=== PATIENT | female | born 1945 | race Caucasian/White ===

== ENCOUNTER 2018-05-23 20:14 | Emergency (ER) | payer OTHER, BC ==
[2018-05-23 21:23] LABS: Absolute Lymphocytes (CBC) 1.5 K/uL (0.7-4.9); Absolute Monocytes 0.7 K/uL (0.1-1.3); Absolute Neutrophil 6.9 K/uL (1.8-8.0); Basophils % 0.5 % (0-1.3); Eosinophils % 2.6 % (0-4.4); Hematocrit 40.8 % (36.0-45.0); Lymphocytes % 16.3 % (15.3-44.8); MCH 29.7 pg (27.0-35.0); MCV 88.1 fL (80-100); MPV 8.2 fL (7.6-11.3); Monocytes % 7.4 % (3.3-12.3); RBC Red Blood Cell Count 4.64 M/uL (3.86-4.86)
[2018-05-23 21:36] LABS: Protime INR 0.96
[2018-05-23 21:49] LABS: ALT/SGPT 20 U/L (12-78); AST/SGOT 19 U/L (15-37); Albumin 3.7 g/dL (3.4-5.0); Alkaline Phosphatase 55 U/L (45-117); BUN Blood Urea Nitrogen 27 mg/dL (7-18); Bicarbonate 30 mmol/L (21-32); Bilirubin Direct < 0.1 mg/dL (0-0.2); Bilirubin Total 0.2 mg/dL (0.2-1.0); Glucose Level 138 mg/dL (74-106); Protein, Total 7.9 g/dL (6.4-8.2); Sodium Level 137 mmol/L (136-145)
--- NOTE | 2018-05-23 22:04 | RAD REPORT ---
EXAM DESCRIPTION: CT - Head Brain Wo Cont - 05/23/2018 9:34 pm CLINICAL HISTORY: Transient alteration of awareness COMPARISON: None. TECHNIQUE: Axial 5 mm thick images of the head were obtained without IV contrast. All CT scans are performed using dose optimization technique as appropriate and may include automated exposure control or mA/KV adjustment according to patient size. FINDINGS: No intracranial hemorrhage, mass, edema or shift of mid-line structures. No acute infarcti on changes seen. No cortical edema or sulcal effacement. Advanced atrophy and chronic ischemic change s are present. Ventricles are in proportion to volume loss. Arterial and physiologic calcifications a re present. Mastoid air cells are clear. Minimal fluid in the right maxillary sinus. No acute bony findings. IMPRESSION: Prominent atrophy and chronic ischemic change with no acute intracranial finding. Small air-fluid level in the right maxillary sinus.
[2018-05-23 22:16] LABS: Urine Blood NEGATIVE (NEG); Urine Glucose NEGATIVE (NEG); Urine Protein NEGATIVE (NEG)
[2018-05-23 22:33] LABS: Barbiturates NEGATIVE (NEGATIVE); Benzodiazepines NEGATIVE (NEGATIVE); Cocaine NEGATIVE (NEGATIVE); METHAMPHETAM NEGATIVE (NEGATIVE); Methadone NEGATIVE (NEGATIVE); Opiates NEGATIVE (NEGATIVE); Phencyclidine NEGATIVE (NEGATIVE); THC Cannibis NEGATIVE (NEGATIVE)
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
[2018-05-23] MEDS ORDERED: LORazepam 2 MG/ML VIAL ONE (23:08)
--- NOTE | 2018-05-24 07:20 | RAD REPORT ---
EXAM DESCRIPTION: RAD - Chest Single View - 05/23/2018 9:33 pm CLINICAL HISTORY: Altered mental status, shortness of breath COMPARISON: April 2015 TECHNIQUE: AP portable chest image was obtained 2125 hours . FINDINGS: No mass or consolidations seen. Heart size and vasculature are not outside of normal range for a slightly shallow inspiratory effort. Interstitial markings are diffusely prominent. Patient love s baseline interstitial lung disease. Interstitial prominence is in part due to shallow inspiration. However, superimposed interstitial edema or interstitial pneumonia suspected. Findings are most prono unced in the right base. Trachea is midline. Calcified granulomas seen. No pulmonary artery enlargement. No measurable pleura l effusion and no pneumothorax. No acute bony abnormality seen. No acute aortic finding. Densely calc ified breast implant capsules seen. IMPRESSION: Suspected interstitial edema or interstitial pneumonia, worse in the right base, superim posed on underlying fibrotic lung disease.
--- NOTE | 2018-05-24 08:13 | EKG ---
Test Date: 2018-05-23 Test Time: 20:54:27 Script Editor: UNIQUE MEASUREMENT RESULTS: Intervals: Rate: 79 OH: 154 QRSD: 78 QT: 390 QTc: 447 [place]: P: 76 OH: 154 QRS: -12 T: 62 INTERPRETIVE STATEMENTS: Normal sinus rhythm Normal ECG No previous ECG available for comparison Electronically Signed On 05-24-18 08:12:13 CDT by Rojas Mohr
== END 2018-05-23 23:27 | disposition home or self-care (01) ==
LOC: ER 20:14 → UNDOADMOB 22:52 → ERHOLD 22:52 → ER 23:27
DX: N39.0 Urinary tract infection, site not specified (principal); F03.90 Unspecified dementia, unspecified severity, without behavioral disturbance, psychotic disturbance, mood disturbance, and anxiety; F32.9 Major depressive disorder, single episode, unspecified
CPT/HCPCS: 36415; 70450; 71045; 80048; 80076; 80307; 80320; 80329; 81003; 85025; 85610; 85730; 93005; 96374; 99284

== ENCOUNTER 2019-01-09 15:04 | Emergency (ER) | payer OTHER, BC ==
--- OUTSIDE RECORDS SUMMARY | 2019-01-09 16:24 | XMS REPORT ---
:1945 [facility] Address [address] [place] [address] Dr. Tesfaye [address] [place] [id number] Care Team Providers Name Role Phone Unavailable Unavailable Unavailable Problems This patient has no known problems. Allergies, Adverse Reactions, Alerts This patient has no known allergies or adverse reactions. Medications This patient has no known medications.
[2019-01-09 16:44] LABS: Protime INR 0.96
[2019-01-09 16:46] LABS: Absolute Lymphocytes (CBC) 2.4 K/uL (0.7-4.9); Absolute Monocytes 0.9 K/uL (0.1-1.3); Absolute Neutrophil 6.5 K/uL (1.8-8.0); Basophils % 0.5 % (0-1.3); Eosinophils % 2.3 % (0-4.4); Hematocrit 42.8 % (36.0-45.0); Lymphocytes % 23.5 % (15.3-44.8); MPV 8.4 fL (7.6-11.3); Monocytes % 8.7 % (3.3-12.3); RBC Red Blood Cell Count 4.99 M/uL (3.86-4.86)
[2019-01-09 16:56] LABS: Sodium Level 135 mmol/L (136-145)
[2019-01-09 16:57] LABS: ALT/SGPT 27 U/L (12-78); AST/SGOT 27 U/L (15-37); Albumin 3.7 g/dL (3.4-5.0); Alkaline Phosphatase 50 U/L (45-117); BUN Blood Urea Nitrogen 17 mg/dL (7-18); Bicarbonate 29 mmol/L (21-32); Bilirubin Direct < 0.1 mg/dL (0-0.2); Bilirubin Total 0.2 mg/dL (0.2-1.0); Glucose Level 84 mg/dL (74-106); Magnesium 2.5 mg/dL (1.8-2.4); Potassium 4.4 mmol/L (3.5-5.1); Protein, Total 7.6 g/dL (6.4-8.2); Troponin (Emerg Dept Use Only) < 0.02 ng/mL (0.0-0.045)
[2019-01-09 17:48] LABS: Urine Bacteria <20 /HPF (<20); Urine Culture Reflex Order NOT NEEDED; Urine Mucus 1+ /HPF (NONE SEEN); Urine RBC <5 /HPF (NONE SEEN)
[2019-01-09 17:48] LABS: Urine Blood NEGATIVE (NEG); Urine Glucose NEGATIVE (NEG); Urine Protein TRACE (NEG); Urine Specific Gravity 1.015 (1.005-1.030)
[2019-01-09] MEDS ORDERED: NA CHLORIDE 0.9% 250 ML ONE (17:58)
[2019-01-09 18:02] LABS: Barbiturates NEGATIVE (NEGATIVE); Benzodiazepines NEGATIVE (NEGATIVE); Cocaine NEGATIVE (NEGATIVE); METHAMPHETAM NEGATIVE (NEGATIVE); Methadone NEGATIVE (NEGATIVE); Opiates NEGATIVE (NEGATIVE); Phencyclidine NEGATIVE (NEGATIVE); THC Cannibis NEGATIVE (NEGATIVE)
[2019-01-09] MEDS ORDERED: clonazePAM 0.5 MG TAB ONE (19:13)
[2019-01-09] MEDS ORDERED: LORazepam 2 MG/ML VIAL ONE (19:46)
--- NOTE | 2019-01-09 20:04 | ER ---
Nurse's Notes [facility] Name: Elisa Buckner Age: 73 yrs Sex: Female : 1945 Arrival Date: 01/09/2019 Time: 15:09 Bed 26 Private MD: Diagnosis: Unspecified dementia with behavioral disturbance Presentation: 01/09 15:17 Presenting complaint: EMS states: Pt comes from home and is diagnosed with Dementia. ca1 She has episodes of Psychosis where she sees a man and goes onto a violent frenzy. Family contacted the mental health officer that they know and were instructed to call EMS and have pt brought to the ER for evaluation. VS are stable and within normal range. PT was not violent towards us but appears confused. Transition of care: patient was not received from another setting of care. Onset of symptoms was January 09, 2019. Risk Assessment: Do you want to hurt yourself or someone else? Patient reports no desire to harm self or others. Initial Sepsis Screen: Does the patient meet any 2 criteria?. Initial Sepsis Screen: Does the patient have a suspected source of infection? No. Patient's initial sepsis screen is negative. Care prior to arrival: None. 15:17 Method Of Arrival: EMS: [facility] ca1 15:17 Acuity: DAMI 2 ca1 Triage Assessment: 15:26 General: Appears in no apparent distress. comfortable, Behavior is calm, cooperative, ca1 appropriate for age. Pain: Denies pain. Neuro: Level of Consciousness is awake, alert, obeys commands, Oriented to person, Agricultural Extension Agent are equal bilaterally Moves all extremities. Speech is normal, Facial symmetry appears normal. Historical: - Allergies: 15:26 No Known Allergies; ca1 - Home Meds: 15:26 aspirin Oral [Active]; Depakote Oral [Active]; Klonopin Oral [Active]; ca1 - PMHx: 15:26 Dementia; Vascular; Depression; Hypertension; Minor Epilepsy; ca1 - PSHx: 15:26 Facelift; ca1 - Immunization history:: Adult Immunizations up to date, Flu vaccine status is unknown. - Social history:: Smoking status: Patient/guardian denies using tobacco. - Ebola Screening: : No symptoms or risks identified at this time. Screenin:30 Abuse screen: Denies threats or abuse. Denies injuries from another. Nutritional ca1 screening: No deficits noted. 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 Possible symptoms: None. Fall Risk Secondary diagnosis (15 points) dementia, Ambulatory Aid- Crutches/Cane/Walker (15 pts). Assessment: 15:30 General: Appears in no apparent distress. comfortable, Behavior is calm, cooperative, ca1 appropriate for age. Pain: Denies pain. Neuro: Level of Consciousness is awake, alert, obeys commands, Oriented to person. Cardiovascular: Heart tones S1 S2 present Capillary refill < 3 seconds Patient's skin is warm and dry. Respiratory: Airway is patent Respiratory effort is even, unlabored, Respiratory pattern is regular, symmetrical, Breath sounds are clear bilaterally. GI: Abdomen is flat, non-distended, Bowel sounds present X 4 quads. Abd is soft and non tender X 4 quads. : No deficits noted. No signs and/or symptoms were reported regarding the genitourinary system. EENT: No deficits noted. No signs and/or symptoms were reported regarding the EENT system. Derm: Skin is intact, is healthy with good turgor. Musculoskeletal: Circulation, motion, and sensation intact. Capillary refill < 3 seconds. 16:25 Reassessment: Patient appears in no apparent distress at this time. Patient and/or ca1 family updated on plan of care and expected duration. Pain level reassessed. Patient is alert, oriented x 3, equal unlabored respirations, skin warm/dry/pink. Family expressed desire for pt to be transferred to a facility that caters to elderly pts with Dementia. SHALOM Hale provider explained that she needs to be checked first medically. 17:28 Reassessment:. Reassessment: Patient appears in no apparent distress at this time. ca1 Patient and/or family updated on plan of care and expected duration. Pain level reassessed. Equal and unlabored respirations. Skin pink, warm and dry. 18:21 Reassessment: Patient appears in no apparent distress at this time. Patient and/or ca1 family updated on plan of care and expected duration. Pain level reassessed. Equal and unlabored respirations. Skin pink, warm and dry. 18:28 Reassessment: Daughter reports pt starts to get agitated at this time. And that the pt ca1 has sundowning. Notified provider. Pt refuses to put on BP cuff, and monitor connections. 19:30 Reassessment: Patient appears in no apparent distress at this time. Pt agitation has ca1 increased as reported by son. Pt refuses to stay on bed and sat at bedside chair. Notified provider. Family in pt's room. Equal and unlabored breathing. Skin pink, warm and dry. 20:39 Reassessment: Patient appears in no apparent distress at this time. Equal and unlabored ca1 respirations. Skin pink, warm and dry. Pending transfer. Family at bedside. 21:27 Reassessment: Patient appears in no apparent distress at this time. Equal and unlabored ca1 respirations. Skin pink, warm and dry. Family at bedside. 22:27 Reassessment: Patient appears in no apparent distress at this time. Equal and unlabored ca1 respirations. Skin pink, warm and dry. Called report to Summer Levin RN. Vital Signs: 15:26 BP 134 / 72; Pulse 84; Resp 17 S; Temp 98.1; Pulse Ox 93% on R/A; Weight 45.36 kg; ca1 Height 5 ft. 3 in. (160.02 cm); Pain 0/10; 16:30 BP 130 / 66; Pulse 77; Resp 17 S; Temp 98(O); Pulse Ox 94% on R/A; ca1 17:15 BP 142 / 81; Pulse 72; Resp 17 S; Temp 98.1; Pulse Ox 95% on R/A; ca1 18:21 BP 147 / 73; Pulse 74; Resp 18; Temp 98.4(O); Pulse Ox 95% on R/A; ca1 20:46 BP 145 / 79; Pulse 96; Resp 18 S; Temp 98.5(O); Pulse Ox 95% ; ca1 22:27 BP 143 / 78; Pulse 89; Resp 17 S; Temp 98.4(O); Pulse Ox 96% on R/A; ca1 15:26 Body Mass Index 17.71 (45.36 kg, 160.02 cm) ca1 ED Course: 15:09 Patient arrived in ED. ca1 15:17 Miranda Ingram RN is Primary Nurse. ca1 15:23 Triage completed. ca1 15:24 EKG done, by wildlife biology technician. reviewed by Ander Rowell MD. at1 15:26 Arm band placed on right wrist. EKG completed in triage. Results shown to MD. ca1 15:30 Patient has correct armband on for positive identification. Placed in gown. Bed in low ca1 position. Call light in reach. Side rails up X2. Adult w/ patient. Pulse ox on. NIBP on. Warm blanket given. 15:51 Armando Callahan PA is PHCP. cp 15:51 Ander Rowell MD is Attending Physician. cp 16:20 Inserted saline lock: 22 gauge in right antecubital area, using aseptic technique. ca1 Blood collected. 16:20 No provider procedures requiring assistance completed. ca1 18:11 PHCP role handed off by Armando Callahan PA jmm 18:11 Martinez Cary PA is PHCP. richardson 18:17 Faxed clinical's to [facility]. ms 22:45 IV discontinued, intact, bleeding controlled, No redness/swelling at site. Pressure ca1 dressing applied. Administered Medications: 17:41 Drug: NS 0.9% 250 ml Route: IV; Rate: bolus; Site: right antecubital; ca1 18:26 Follow up: Response: No adverse reaction; IV Status: Completed infusion ca1 19:01 Drug: KLONopin 0.5 mg Route: PO; ca1 19:29 Follow up: Response: No adverse reaction; Anxiety unchanged; Anxiety unchanged, ca1 notified provider 19:30 Drug: Ativan 1 mg Route: IVP; Site: right antecubital; ca1 22:29 Follow up: Response: No adverse reaction ca1 Output: 18:21 Urine: 250ml (Voided); Total: 250ml. ca1 Outcome: 20:03 ER care complete, transfer ordered by . [facility] 22:55 Transferred by ground EMS Note: [facility] Unit ca1 22:55 Condition: stable 22:55 Instructed on the need for transfer. 22:56 Patient left the ED. ca1 Signatures: Martinez Cary PA PA jmm Solis, Maria ms Garland, Josefina, air carrier operations inspector EKG Tat1 Armando Callahan PA PA cp Acob, Cheryl, DUNCAN RN ca1 Corrections: (The following items were deleted from the chart) 16:04 15:26 Ebola Screening: No symptoms or risks identified at this time ca1 ca1 16:05 15:30 Tuberculosis screening: No symptoms or risk factors identified. ca1 ca1 20:42 17:28 Reassessment: Patient appears in no apparent distress at this time. Patient ca1 and/or family updated on plan of care and expected duration. Pain level reassessed. Patient is alert, oriented x 3, equal unlabored respirations, skin warm/dry/pink. ca1 20:42 18:21 Reassessment: Patient appears in no apparent distress at this time. Patient ca1 and/or family updated on plan of care and expected duration. Pain level reassessed. Patient is alert, oriented x 3, equal unlabored respirations, skin warm/dry/pink. ca1 20:43 18:28 Reassessment: Daughter reports pt starts to get agitated at this time. And that ca1 the pt has sundowning. Notified provider ca1 21:02 20:46 BP 145 / 79; Pulse 96bpm; Pulse Ox 95%; Temp 98.5F Oral; ca1 ca1
--- NOTE | 2019-01-09 20:04 | EDPHYS ---
Physician Documentation [facility] Name: Elisa Buckner Age: 73 yrs Sex: Female : 1945 Arrival Date: 01/09/2019 Time: 15:09 Bed 26 Private MD: ED Physician Ander Rowell HPI: 01/09 16:05 This 73 yrs old Female presents to ER via EMS with complaints of increased cp agitation, paranoia. 16:05 The patient presents to the emergency department with paranoia. Onset: The cp symptoms/episode began/occurred gradually, and became worse 1 week(s) ago. Past psychiatric history: Prior diagnosis: depression, Dementia, Psychiatric medications include: Klonipin. Associated signs and symptoms: Pertinent positives; hallucinations, paranoia, Pertinent negatives: abdominal pain, chest pain, fever, substance abuse. Severity of symptoms: in the emergency department the symptoms have improved markedly. 16:05 Family reports patient has been increasingly paranoid and frequently attacking cp over the past week. Historical: - Allergies: 15:26 No Known Allergies; ca1 - Home Meds: 15:26 aspirin Oral [Active]; Depakote Oral [Active]; Klonopin Oral [Active]; ca1 - PMHx: 15:26 Dementia; Vascular; Depression; Hypertension; Minor Epilepsy; ca1 - PSHx: 15:26 Facelift; ca1 - Immunization history:: Adult Immunizations up to date, Flu vaccine status is unknown. - Social history:: Smoking status: Patient/guardian denies using tobacco. - Ebola Screening: : No symptoms or risks identified at this time. ROS: 16:10 Constitutional: Negative for body aches, chills, fever, poor PO intake. cp 16:10 Eyes: Negative for injury, pain, redness, and discharge. cp 16:10 Cardiovascular: Negative for chest pain. 16:10 Respiratory: Negative for cough, wheezing. 16:10 Abdomen/GI: Negative for abdominal pain, vomiting, diarrhea, constipation. 16:10 : Negative for urinary symptoms. 16:10 Skin: Negative for rash. 16:10 Neuro: Negative for altered mental status, weakness. 16:10 Psych: Positive for paranoia. 16:10 All other systems are negative. Exam: 16:35 Constitutional: The patient appears in no acute distress, alert, awake, cp non-diaphoretic, non-toxic, well developed, well nourished. 16:35 Head/Face: Normocephalic, atraumatic. cp 16:35 Eyes: Periorbital structures: appear normal, Pupils: equal, round, and reactive to light and accomodation, Conjunctiva: normal, no exudate, no injection, Sclera: no appreciated abnormality, Lids and lashes: appear normal, bilaterally. 16:35 ENT: External ear(s): are unremarkable, Ear canal(s): are normal, clear, TM's: are normal, no evidence of bulging, no erythema, Nose: is normal, Mouth: Lips: moist, Oral mucosa: pink and intact, moist, Posterior pharynx: is normal, airway is patent, no erythema, no exudate. 16:35 Neck: ROM/movement: is normal, is supple, without pain, no range of motions limitations, no meningismus, no nuchal rigidity. 16:35 Chest/axilla: Inspection: normal, Palpation: is normal, no crepitus, no tenderness. 16:35 Cardiovascular: Rate: normal, Rhythm: regular, Edema: is not appreciated, JVD: is not appreciated. 16:35 Respiratory: the patient does not display signs of respiratory distress, Respirations: normal, no use of accessory muscles, no retractions, no splinting, no tachypnea, labored breathing, is not present, Breath sounds: are clear throughout, no decreased breath sounds, no stridor, no wheezing. 16:35 Abdomen/GI: Inspection: abdomen appears normal, Palpation: abdomen is soft and non-tender, in all quadrants, rebound tenderness, is not appreciated, involuntary guarding, is not appreciated. 16:35 Back: pain, is absent, ROM is normal. 16:35 Skin: cellulitis, is not appreciated, no rash present. 16:35 Neuro: Orientation: to person, Mentation: able to follow commands, Cerebellar function: is grossly normal, Motor: moves all fours, strength is normal, Sensation: is normal. Vital Signs: 15:26 BP 134 / 72; Pulse 84; Resp 17 S; Temp 98.1; Pulse Ox 93% on R/A; Weight 45.36 kg; ca1 Height 5 ft. 3 in. (160.02 cm); Pain 0/10; 16:30 BP 130 / 66; Pulse 77; Resp 17 S; Temp 98(O); Pulse Ox 94% on R/A; ca1 17:15 BP 142 / 81; Pulse 72; Resp 17 S; Temp 98.1; Pulse Ox 95% on R/A; ca1 18:21 BP 147 / 73; Pulse 74; Resp 18; Temp 98.4(O); Pulse Ox 95% on R/A; ca1 20:46 BP 145 / 79; Pulse 96; Resp 18 S; Temp 98.5(O); Pulse Ox 95% ; ca1 22:27 BP 143 / 78; Pulse 89; Resp 17 S; Temp 98.4(O); Pulse Ox 96% on R/A; ca1 15:26 Body Mass Index 17.71 (45.36 kg, 160.02 cm) ca1 MDM: 15:51 Patient medically screened. cp 16:30 Differential diagnosis: acute psychotic break, psychosis secondary to non-compliance, cp UTI, intracranial bleed, electrolyte abnormality. 20:02 Data reviewed: vital signs, nurses notes. Counseling: I had a detailed discussion with sara the patient and/or guardian regarding: the historical points, exam findings, and any diagnostic results supporting the discharge/admit diagnosis, lab results, the need to transfer to another facility. ED course: I discussed the patient with Dr. Cedeno whom accepted transfer.. 01/09 16:02 Order name: Basic Metabolic Panel; Complete Time: 17:33 cp 05/30 17:33 Interpretation: Normal except: NA 135; GFR 46. cp 01/09 16:02 Order name: CBC with Diff; Complete Time: 17:33 cp /30 17:35 Interpretation: Normal except: RBC 4.99. cp 01/09 16:02 Order name: LFT's; Complete Time: 17:33 cp 30 16:02 Order name: Magnesium; Complete Time: 17:33 cp 05/30 17:37 Interpretation: MG 2.5; Reviewed. cp 01/09 16:02 Order name: PT-INR; Complete Time: 17:33 cp 01/09 16:02 Order name: Troponin (emerg Dept Use Only); Complete Time: 17:33 cp 01/09 16:02 Order name: Urine Microscopic Only; Complete Time: 18:09 cp 01/09 16:04 Order name: UDS; Complete Time: 18:09 cp 01/09 16:30 Order name: Depakote; Complete Time: 18:09 cp 01/09 17:40 Order name: Urine Dipstick--Ancillary (enter results); Complete Time: 18:09 ms 01/09 16:02 Order name: EKG; Complete Time: 16:04 cp 01/09 16:02 Order name: Cardiac monitoring; Complete Time: 16:03 cp 01/09 16:02 Order name: EKG - Nurse/Tech; Complete Time: 16:03 cp 01/09 16:02 Order name: IV Saline Lock; Complete Time: 16:26 cp 01/09 16:02 Order name: Labs collected and sent; Complete Time: 16: cp 01/09 16:02 Order name: O2 Per Protocol; Complete Time: 16:03 cp 01/09 16:02 Order name: O2 Sat Monitoring; Complete Time: 16:03 cp 01/09 16:02 Order name: Urine Dipstick-Ancillary (obtain specimen); Complete Time: 17:37 cp Administered Medications: 17:41 Drug: NS 0.9% 250 ml Route: IV; Rate: bolus; Site: right antecubital; ca1 18:26 Follow up: Response: No adverse reaction; IV Status: Completed infusion ca1 19:01 Drug: KLONopin 0.5 mg Route: PO; ca1 19:29 Follow up: Response: No adverse reaction; Anxiety unchanged; Anxiety unchanged, ca1 notified provider 19:30 Drug: Ativan 1 mg Route: IVP; Site: right antecubital; ca1 22:29 Follow up: Response: No adverse reaction ca1 Disposition: 01/10 06:59 Co-signature as Attending Physician, Ander Rowell MD I agree with the assessment and kdr plan of care. Disposition: 01/09/19 20:03 Transfer ordered to Other Acute Care Facility. Diagnosis is Unspecified dementia with behavioral disturbance. - Reason for transfer: Higher level of care. - Accepting physician is Wilian. - Condition is Stable. - Problem is an acute exacerbation. - Symptoms are unchanged. Signatures: Dispatcher [employer] Ander Rodriguez MD MD kdr Mickail, Joel, PA PA jmm Ballard, Brenda, RN RN bb Page, Armando, PA PA cp Acob, Miranda, RN RN ca1 Corrections: (The following items were deleted from the chart) 01/09 16:04 15:26 Ebola Screening: No symptoms or risks identified at this time ca1 ca1 17:48 16:30 Head Brain Wo Cont+CT.RAD.BRZ ordered. EDMS EDMS 22:56 20:03 01/09/2019 20:03 Transfer ordered to Other Acute Care Facility. Diagnosis is ca1 Unspecified dementia with behavioral disturbance. Reason for transfer: Higher level of care. Accepting physician is Wilian. Condition is Stable. Problem is an acute exacerbation. Symptoms are unchanged. sara
--- NOTE | 2019-01-10 08:41 | EKG ---
Test Date: 2019-01-09 Test Time: 15:09:04 Union Laborer: FAWN MEASUREMENT RESULTS: Intervals: Rate: 89 MN: 136 QRSD: 76 QT: 360 QTc: 438 [place]: P: 82 MN: 136 QRS: -19 T: 78 INTERPRETIVE STATEMENTS: Normal sinus rhythm Normal ECG Compared to ECG 05/23/2018 20:54:27 No significant changes Electronically Signed On 01-10-19 08:40:08 CDT by Rojas Mohr
== END 2019-01-09 22:56 ==
LOC: ER 15:04
DX: F03.91 Unspecified dementia, unspecified severity, with behavioral disturbance (principal); G40.909 Epilepsy, unspecified, not intractable, without status epilepticus; F32.9 Major depressive disorder, single episode, unspecified
CPT/HCPCS: 36415; 80048; 80076; 80164; 80307; 81003; 81015; 83735; 84484; 85025; 85610; 93005; 96365; 96375; 99285

== ENCOUNTER 2019-06-25 20:00 | Emergency (ER) | payer OTHER, BC ==
--- OUTSIDE RECORDS SUMMARY | 2019-06-25 20:02 | XMS REPORT ---
:1945 Author Organization [facility] Address [address] [place] [address] Dr. Tesfaye [address] [place] [id number] Care Team Providers Name Role Phone Unavailable Unavailable Unavailable Problems This patient has no known problems. Allergies, Adverse Reactions, Alerts This patient has no known allergies or adverse reactions. Medications This patient has no known medications.
[2019-06-25 20:33] LABS: Hematocrit 39.1 % (36.0-45.0); RBC Red Blood Cell Count 4.56 M/uL (3.86-4.86)
[2019-06-25 20:34] LABS: Absolute Lymphocytes (CBC) 2.6 K/uL (0.7-4.9); Basophils % 0.7 % (0-1.3); Lymphocytes % 27.2 % (15.3-44.8); MPV 8.4 fL (7.6-11.3)
[2019-06-25 20:39] LABS: Protime INR 1.02
--- NOTE | 2019-06-25 20:41 | RAD REPORT ---
EXAM DESCRIPTION: CT - Ct Stroke Brain Wo Cont - 06/25/2019 8:34 pm CLINICAL HISTORY: aphasia COMPARISON: 2018 TECHNIQUE: Computed axial tomography of the head was obtained. All CT scans are performed using dose optimization technique as appropriate and may include automated exposure control or mA/KV adjustment according to patient size. FINDINGS: An intracranial bleed is not seen . The ventricles are normal in caliber. No extra-axial fluid collection is noted. Mild low-density within periventricular, deep and subcortical white matter likely ischemic changes se condary to small vessel disease Fluid within the sinuses/ mastoids is not seen. IMPRESSION: No acute intracranial abnormality is seen. If patient's symptoms persist MRI of the bra in would be recommended. Aubrey of the emergency room was notified at approximately 8:15 p.m. on June 25, 2019
[2019-06-25 20:53] LABS: ALT/SGPT 20 U/L (12-78); AST/SGOT 19 U/L (15-37); Albumin 3.1 g/dL (3.4-5.0); Alkaline Phosphatase 77 U/L (45-117); BUN Blood Urea Nitrogen 30 mg/dL (7-18); Bicarbonate 28 mmol/L (21-32); Bilirubin Direct 0.1 mg/dL (0-0.2); Bilirubin Total 0.3 mg/dL (0.2-1.0); Glucose Level 104 mg/dL (74-106); Magnesium 2.3 mg/dL (1.8-2.4); NT PRO-BNP 248 pg/mL (<450); Potassium 3.5 mmol/L (3.5-5.1); Protein, Total 7.2 g/dL (6.4-8.2); Sodium Level 140 mmol/L (136-145); Troponin (Emerg Dept Use Only) < 0.02 ng/mL (0.0-0.045)
--- NOTE | 2019-06-25 21:08 | RAD REPORT ---
EXAM DESCRIPTION: Letty Single View06/25/2019 8:55 pm CLINICAL HISTORY: Shortness of breath COMPARISON: 2018 FINDINGS: The lungs appear clear of acute infiltrate. The heart is normal size IMPRESSION: No acute abnormalities displayed
--- NOTE | 2019-06-25 21:26 | EDPHYS ---
Physician Documentation [facility] Name: Elisa Buckner Age: 74 yrs Sex: Female : 1945 Arrival Date: 06/25/2019 Time: 20:07 Bed 2 Private MD: ED Physician Armando Canales HPI: 06/25 20:45 This 74 yrs old Female presents to ER via EMS with complaints of Slurred jr8 Speech. 20:45 The patient presents to the emergency department with a speech or higher order brain jr8 function problem, aphasia, that is mild. Onset: The symptoms/episode began/occurred acutely, today, at an unknown time. Last known normal was 2 hours prior to arrival to ED . Context: occurred at a retirement or assisted living facility, occurred while the patient was at rest. Associated signs and symptoms: The patient has no apparent associated signs or symptoms. Severity of symptoms: At their worst the symptoms were very mild in the emergency department the symptoms have resolved. Patient's baseline: Neuro: alert but confused, Motor: no deficits, Ambulation: walks with assist only, Speech: normal. Current symptoms: Currently, the patient is not experiencing any symptoms, the patient feels back to baseline. The patient has not experienced similar symptoms in the past. The patient has not recently seen a physician. Family member who is with patient stated that she has vascular dementia. Stated that he sees no difference in speech, facial function, or any other part of her. Baseline currently. EMS was called because they thought patients face was drooping and was having speech difficulty. . Historical: - Allergies: 20:20 Biaxin; fc - Home Meds: 20:20 acetaminophen 500 mg Oral tab 1 tab q6hrs prn [Active]; aspirin 81 mg oral TbEC 1 tab fc once daily [Active]; Ativan 0.5 mg Oral tab 1 tab q6hrs prn [Active]; multivitamin with minerals 9 mg iron/15 mL oral liqd daily [Active]; losartan 50 mg oral tab 1 tab once daily [Active]; Zofran (as hydrochloride) 4 mg Oral tab 1 tabs q6hrs prn [Active]; quetiapine 300 mg oral tab 1 tab nightly [Active]; Vitamin D Oral 1,000 unit daily [Active]; - PMHx: 20:20 Dementia; Vascular; Depression; Hypertension; Minor Epilepsy; fc - PSHx: 20:20 Facelift; fc - Immunization history:: Last tetanus immunization: unknown. - Social history:: Smoking status: unknown. - Ebola Screening: : Patient negative for fever greater than or equal to 101.5 degrees Fahrenheit, and additional compatible Ebola Virus Disease symptoms Patient denies exposure to infectious person Patient denies travel to an Ebola-affected area in the 21 days before illness onset. ROS: 20:45 Unable to obtain ROS due to baseline dementia. jr8 Exam: 20:45 Eyes: Pupils equal round and reactive to light, extra-ocular motions intact. Lids and jr8 lashes normal. Conjunctiva and sclera are non-icteric and not injected. Cornea within normal limits. Periorbital areas with no swelling, redness, or edema. ENT: Nares patent. No nasal discharge, no septal abnormalities noted. Tympanic membranes are normal and external auditory canals are clear. Oropharynx with no redness, swelling, or masses, exudates, or evidence of obstruction, uvula midline. Mucous membranes moist. Neck: Trachea midline, no thyromegaly or masses palpated, and no cervical lymphadenopathy. Supple, full range of motion without nuchal rigidity, or vertebral point tenderness. No Meningismus. Cardiovascular: Regular rate and rhythm with a normal S1 and S2. No gallops, murmurs, or rubs. Normal PMI, no JVD. No pulse deficits. Respiratory: Lungs have equal breath sounds bilaterally, clear to auscultation and percussion. No rales, rhonchi or wheezes noted. No increased work of breathing, no retractions or nasal flaring. Abdomen/GI: Soft, non-tender, with normal bowel sounds. No distension or tympany. No guarding or rebound. No evidence of tenderness throughout. Back: No spinal tenderness. No costovertebral tenderness. Full range of motion. Skin: Warm, dry with normal turgor. Normal color with no rashes, no lesions, and no evidence of cellulitis. MS/ Extremity: Pulses equal, no cyanosis. Neurovascular intact. Full, normal range of motion. 20:45 Neuro: Orientation: to person, Mentation: able to follow commands, confused, Memory: immediate memory is intact, remote memory is impaired, recent memory is impaired, Cranial nerves: CN I not tested, CN II- XII are normal as tested, visual booth are intact. extraocular movements are intact, Facial palsy and sensory deficits are absent. Speech is clear and appropriate. Tongue strength is normal, Cerebellar function: normal finger to nose testing, Motor: moves all fours, strength is 5/5 in all extremities, Sensation: no obvious gross deficits, Gait: not tested. seizure activity, is not displayed by the patient, Abnormal movements: there are no abnormal movements. Vital Signs: 20:35 BP 150 / 94; Pulse 94; Resp 17 S; Pulse Ox 97% on R/A; Weight 68.04 kg (R); Height 5 jd3 ft. 4 in. (162.56 cm) (R); Pain 0/10; 21:15 BP 142 / 74; Pulse 79; Resp 17 S; Pulse Ox 98% on R/A; jd3 20:35 Body Mass Index 25.75 (68.04 kg, 162.56 cm) jd3 NIH Stroke Scale Scores: 20:00 NIHSS Score: 4 lp1 20:00 NIHSS Score: 4 lp1 20:45 NIHSS Score: 3 jr8 MDM: 20:15 Patient medically screened. jr8 20:45 ED course: No acute findings on the CT. Although patient has NIH of 3. This is baseline jr8 for patient secondary to dementia. Patient at baseline currently without deficits. Patient not a candidate for tPA. 21:23 Data reviewed: vital signs, nurses notes, lab test result(s), EKG, radiologic studies, jr8 CT scan, plain films. Data interpreted: Pulse oximetry: on room air is 97 %. Interpretation: normal. Counseling: I had a detailed discussion with the patient and/or guardian regarding: the historical points, exam findings, and any diagnostic results supporting the discharge/admit diagnosis, lab results, radiology results, the need for outpatient follow up, a family practitioner, to return to the emergency department if symptoms worsen or persist or if there are any questions or concerns that arise at home. ED course: Patient still at baseline per family. No acute findings on CT or labs. Will d/c back to [facility] . 06/25 20:15 Order name: Basic Metabolic Panel; Complete Time: 20:57 jr8 06/25 20:15 Order name: CBC with Diff; Complete Time: 20:43 jr8 06/25 20:15 Order name: LFT's; Complete Time: 20:57 [facility] 06/25 20:15 Order name: Magnesium; Complete Time: 20:57 06/25 20:15 Order name: NT PRO-BNP; Complete Time: 20:57 06/25 20:15 Order name: PT-INR; Complete Time: 20:43 8 06/25 20:15 Order name: Troponin (emerg Dept Use Only); Complete Time: 20:57 [facility] 06/25 20:15 Order name: XRAY Chest (1 view); Complete Time: 21:14 [facility] 06/25 20:15 Order name: EKG; Complete Time: 20:16 [facility] 06/25 20:15 Order name: Cardiac monitoring; Complete Time: 20:33 [facility] 06/25 20:15 Order name: EKG - Nurse/Tech; Complete Time: 20:33 [facility] 06/25 20:15 Order name: CT Stroke Brain w/o Contrast; Complete Time: 20:45 [facility] 06/25 20:33 Order name: glucometer results - FOR PT WITH NO ID; Complete Time: 21:59 [facility] 06/25 20:42 Order name: Glucose, Ancillary Testing; Complete Time: 20:43 EDMS 06/25 20:15 Order name: IV Saline Lock; Complete Time: 20:33 [facility] 06/25 20:15 Order name: Labs collected and sent; Complete Time: 20:33 06/25 20:15 Order name: O2 Per Protocol; Complete Time: 20:33 [facility] 06/25 20:15 Order name: O2 Sat Monitoring; Complete Time: 20:33 [facility] 06/25 20:15 Order name: Accucheck; Complete Time: 20:33 Administered Medications: No medications were administered Point of Care Testing: Blood Glucose: 20:25 Blood Glucose: 103 mg/dL; jd3 Ranges: Critical Glucose Levels:Adult <50 mg/dl or >400 mg/dl <40 mg/dl or >180 mg/dl Disposition: 06/25/19 21:25 Discharged to Home. Impression: Encounter for general adult medical examination without abnormal findings. - Condition is Stable. - Discharge Instructions: Transient Ischemic Attack. - Medication Reconciliation Form, Thank You Letter, Antibiotic Education, Prescription Opioid Use form. - Follow up: Private Physician; When: 2 - 3 days; Reason: Recheck today's complaints, Continuance of care, Re-evaluation by your physician. - Problem is new. - Symptoms have improved. NIH Stroke Scale - NIH Stroke Score Date: 06/25/2019 Time: 20:00 Total Score = 4 1a. Level of Consciousness (LOC) - 0(Alert) 1b. Level of Consciousness (LOC) (Year \T\ Age) - 1(One) 1c. LOC Commands (Open \T\ Closes Eyes/Air Carrier Maintenance Inspector) - 0(Both) 2. Best Gaze (Lateral Gaze Paresis) - 0(Normal) 3. Visual Field Loss - 0(No visual loss) 4. Facial Palsy - 1(Minor Paralysis) 5a. Left Arm: Motor (10-second hold) - 0(No drift) 5b. Right Arm: Motor (10-second hold) - 0(No drift) 6a. Left Leg: Motor (5-second hold - always test supine) - 0(No drift) 6b. Right Leg: Motor (5-second hold - always test supine) - 1(Drift) 7. Limb Ataxia (finger/nose \T\ heel/beck - test with eyes open) - 0(Absent) 8. Sensory Loss (pinprick arms/legs/face) - 0(Normal) 9. Best Language: Aphasia (description/naming/reading) - 1(Mild to moderate aphasia) 10. Dysarthria (speech clarity - read or repeat words) - 0(Normal) 11. Extinction and Inattention (visual/tactile/auditory/spatial/personal) - 0(No abnormality) Initials: lp1 NIH Stroke Scale - NIH Stroke Score Date: 06/25/2019 Time: 20:00 Total Score = 4 1a. Level of Consciousness (LOC) - 0(Alert) 1b. Level of Consciousness (LOC) (Year \T\ Age) - 1(One) 1c. LOC Commands (Open \T\ Closes Eyes/Air Carrier Maintenance Inspector) - 0(Both) 2. Best Gaze (Lateral Gaze Paresis) - 0(Normal) 3. Visual Field Loss - 0(No visual loss) 4. Facial Palsy - 1(Minor Paralysis) 5a. Left Arm: Motor (10-second hold) - 0(No drift) 5b. Right Arm: Motor (10-second hold) - 0(No drift) 6a. Left Leg: Motor (5-second hold - always test supine) - 0(No drift) 6b. Right Leg: Motor (5-second hold - always test supine) - 1(Drift) 7. Limb Ataxia (finger/nose \T\ heel/beck - test with eyes open) - 0(Absent) 8. Sensory Loss (pinprick arms/legs/face) - 0(Normal) 9. Best Language: Aphasia (description/naming/reading) - 1(Mild to moderate aphasia) 10. Dysarthria (speech clarity - read or repeat words) - 0(Normal) 11. Extinction and Inattention (visual/tactile/auditory/spatial/personal) - 0(No abnormality) Initials: lp1 NIH Stroke Scale - NIH Stroke Score Date: 06/25/2019 Time: 20:45 Total Score = 3 1a. Level of Consciousness (LOC) - 0(Alert) 1b. Level of Consciousness (LOC) (Year \T\ Age) - 2(Neither) 1c. LOC Commands (Open \T\ Closes Eyes/Air Carrier Maintenance Inspector) - 0(Both) 2. Best Gaze (Lateral Gaze Paresis) - 0(Normal) 3. Visual Field Loss - 0(No visual loss) 4. Facial Palsy - 0(Normal) 5a. Left Arm: Motor (10-second hold) - 0(No drift) 5b. Right Arm: Motor (10-second hold) - 0(No drift) 6a. Left Leg: Motor (5-second hold - always test supine) - 0(No drift) 6b. Right Leg: Motor (5-second hold - always test supine) - 0(No drift) 7. Limb Ataxia (finger/nose \T\ heel/beck - test with eyes open) - 0(Absent) 8. Sensory Loss (pinprick arms/legs/face) - 0(Normal) 9. Best Language: Aphasia (description/naming/reading) - 1(Mild to moderate aphasia) 10. Dysarthria (speech clarity - read or repeat words) - 0(Normal) 11. Extinction and Inattention (visual/tactile/auditory/spatial/personal) - 0(No abnormality) Initials: jr8 Addendum: 06/27/2019 13:48 Co-signature as Attending Physician, Armando Canales MD I agree with the [facility] assessment and plan of care. Signatures: Dispatcher [employer] Armando Forte MD MD cha Chretien, Felicia, RN RN Aubrey Stewart PA PA jr8 Corrections: (The following items were deleted from the chart) 06/25 22:02 21:25 06/25/2019 21:25 Discharged to Home. Impression: Encounter for general adult medical examination without abnormal findings. Condition is Stable. Forms are Medication Reconciliation Form, Thank You Letter, Antibiotic Education, Prescription Opioid Use. Follow up: Private Physician; When: 2 - 3 days; Reason: Recheck today's complaints, Continuance of care, Re-evaluation by your physician. Problem is new. Symptoms have improved. jr8
--- NOTE | 2019-06-25 21:26 | ER ---
Nurse's Notes [facility] Name: Elisa Buckner Age: 74 yrs Sex: Female : 1945 Arrival Date: 06/25/2019 Time: 20:07 Bed 2 Private MD: Diagnosis: Encounter for general adult medical examination without abnormal findings Presentation: 06/25 19:57 Presenting complaint: EMS states: that pt had been sitting in her chair for some time fc and at 2014 the staff noted that pt had a right facial droop and slurred speech. Also pt has had abd pain and diarrhea x 3 days. Hard to get total assessment due to pts severe dementia. Transition of care: patient was not received from another setting of care. An acute neurological deficit is present. The charge nurse has been notified. The patient has been moved to a treatment area. The patients blood glucose was checked before arriving to the hospital and was found to be normal. Onset of symptoms was June 25, 2019. Risk Assessment: Do you want to hurt yourself or someone else? Patient reports no desire to harm self or others. Care prior to arrival: IV initiated. 20 GA, in the right wrist, Glucose check: 113. 19:57 Method Of Arrival: EMS: [facility] fc 20:08 Acuity: DAMI 2 fc 21:08 Initial Sepsis Screen: Does the patient meet any 2 criteria? No. Patient's initial lp1 sepsis screen is negative. Does the patient have a suspected source of infection? No. Patient's initial sepsis screen is negative. Triage Assessment: 19:57 The onset of the patients symptoms was at an unknown time. fc Stroke Activation: Physician: Stroke Attending; Name: ; Notified At: ; Arrived At: Physician: Chief Stroke Resident; Name: ; Notified At: ; Arrived At: Physician: Stroke Resident; Name: ; Notified At: ; Arrived At: Physician: ED Attending; Name: Parker/Aubrey; Notified At: 19:57; Arrived At: 19:58 Physician: ED Resident; Name: ; Notified At: ; Arrived At: 19:57 unknown time of onset fc Historical: - Allergies: 20:20 Biaxin; fc - Home Meds: 20:20 acetaminophen 500 mg Oral tab 1 tab q6hrs prn [Active]; aspirin 81 mg oral TbEC 1 tab fc once daily [Active]; Ativan 0.5 mg Oral tab 1 tab q6hrs prn [Active]; multivitamin with minerals 9 mg iron/15 mL oral liqd daily [Active]; losartan 50 mg oral tab 1 tab once daily [Active]; Zofran (as hydrochloride) 4 mg Oral tab 1 tabs q6hrs prn [Active]; quetiapine 300 mg oral tab 1 tab nightly [Active]; Vitamin D Oral 1,000 unit daily [Active]; - PMHx: 20:20 Dementia; Vascular; Depression; Hypertension; Minor Epilepsy; fc - PSHx: 20:20 Facelift; fc - Immunization history:: Last tetanus immunization: unknown. - Social history:: Smoking status: unknown. - Ebola Screening: : Patient negative for fever greater than or equal to 101.5 degrees Fahrenheit, and additional compatible Ebola Virus Disease symptoms Patient denies exposure to infectious person Patient denies travel to an Ebola-affected area in the 21 days before illness onset. Screenin:57 Abuse screen: Denies threats or abuse. Nutritional screening: No deficits noted. fc Tuberculosis screening: No symptoms or risk factors identified. Fall Risk Fall in past 12 months (25 points). Secondary diagnosis (15 points) dementia, IV access (20 points). Ambulatory Aid- Crutches/Cane/Walker (15 pts). Gait- Impaired (20 pts.). Mental Status- Overestimates/Forgets Limitations (15 pts.). Total Chun Fall Scale indicates High Risk Score (45 or more points). Fall prevention measures have been instituted. Side Rails Up X 2 Placed Close to Nursing Station Frequent Obs/Assessments Occuring As available patient and family educated on Fall Prevention Program and Strategies. Assessment: 20:00 VAN Scoring: Arm Drift: Patients demonstrates NO arm weakness. Patient is VAN Negative. lp1 20:00 T-PA (Activase) Screening: Contraindications: Other: Unknown symptom onset. lp1 20:15 General: Appears in no apparent distress. comfortable, Behavior is calm, cooperative. lp1 Pain: Denies pain. Neuro: Level of Consciousness is awake, alert, obeys commands, Oriented to person. Cardiovascular: Patient's skin is warm and dry. Respiratory: Respiratory effort is even, unlabored, Breath sounds are clear bilaterally. GI: Abdomen is non-distended. : No signs and/or symptoms were reported regarding the genitourinary system. EENT: No signs and/or symptoms were reported regarding the EENT system. Derm: Skin is intact, Skin is dry, Skin is normal. Musculoskeletal: No deficits noted. 20:30 The patient has not been NPO before screening. The patient is alert, and able to follow jd3 commands. The patient does not exhibit slurred or garbled speech. The patient is not exhibiting difficulty speaking. The patient is exhibiting difficulty understanding words. The patient is able to swallow own secretions with no drooling or need for suction. Patient tolerated one teaspoon of water. No drooling, immediate coughing, gurgling, or clearing of the throat was noted. The patient tolerated 90mL of water. No drooling, immediate coughing, gurgling, or clearing of the throat was noted. The patient passed the bedside swallow screening. Oral medications may be given as ordered. Contact Physician for further diet orders. Provider notified of bedside swallow screening results: Aubrey RAUSCH. 21:15 Reassessment: Patient appears in no apparent distress at this time. Patient and/or lp1 family updated on plan of care and expected duration. Pain level reassessed. at bedside, aware of pending results. Vital Signs: 20:35 BP 150 / 94; Pulse 94; Resp 17 S; Pulse Ox 97% on R/A; Weight 68.04 kg (R); Height 5 jd3 ft. 4 in. (162.56 cm) (R); Pain 0/10; 21:15 BP 142 / 74; Pulse 79; Resp 17 S; Pulse Ox 98% on R/A; jd3 20:35 Body Mass Index 25.75 (68.04 kg, 162.56 cm) jd3 NIH Stroke Scale Scores: 20:00 NIHSS Score: 4 lp1 20:00 NIHSS Score: 4 lp1 20:45 NIHSS Score: 3 jr8 ED Course: 19:57 Arm band placed on Patient placed in an exam room, on a stretcher. fc 19:57 Patient has correct armband on for positive identification. Placed in gown. Bed in low fc position. Call light in reach. Side rails up X2. 19:57 No provider procedures requiring assistance completed. Maintain EMS IV. Dressing fc intact. Good blood return noted. Site clean \T\ dry. Gauge \T\ site: 20 gauge to right wrist. 20:07 Patient arrived in ED. fc 20:13 Triage completed. fc 20:15 Aubrey Stewart PA is PHCP. jr8 20:15 Armando Canales MD is Attending Physician. jr8 20:33 CT Stroke Brain w/o Contrast In Process Unspecified. EDMS 20:43 XRAY Chest (1 view) In Process Unspecified. EDMS 20:58 Dee Dee Quispe, DUNCAN is Primary Nurse. lp1 21:30 IV discontinued, No redness/swelling at site. Pressure dressing applied. lp1 Administered Medications: No medications were administered Point of Care Testing: Blood Glucose: 20:25 Blood Glucose: 103 mg/dL; jd3 Ranges: Outcome: 21:25 Discharge ordered by . jr8 21:30 Discharged to home via wheelchair, with significant other, to return to [facility] lp1 21:30 Condition: good 21:30 Discharge instructions given to patient, significant other, Instructed on discharge instructions, follow up and referral plans. Demonstrated understanding of instructions, follow-up care. 21:40 Patient left the ED. lp1 NIH Stroke Scale - NIH Stroke Score Date: 06/25/2019 Time: 20:00 Total Score = 4 1a. Level of Consciousness (LOC) - 0(Alert) 1b. Level of Consciousness (LOC) (Year \T\ Age) - 1(One) 1c. LOC Commands (Open \T\ Closes Eyes/Software Lead) - 0(Both) 2. Best Gaze (Lateral Gaze Paresis) - 0(Normal) 3. Visual Field Loss - 0(No visual loss) 4. Facial Palsy - 1(Minor Paralysis) 5a. Left Arm: Motor (10-second hold) - 0(No drift) 5b. Right Arm: Motor (10-second hold) - 0(No drift) 6a. Left Leg: Motor (5-second hold - always test supine) - 0(No drift) 6b. Right Leg: Motor (5-second hold - always test supine) - 1(Drift) 7. Limb Ataxia (finger/nose \T\ heel/beck - test with eyes open) - 0(Absent) 8. Sensory Loss (pinprick arms/legs/face) - 0(Normal) 9. Best Language: Aphasia (description/naming/reading) - 1(Mild to moderate aphasia) 10. Dysarthria (speech clarity - read or repeat words) - 0(Normal) 11. Extinction and Inattention (visual/tactile/auditory/spatial/personal) - 0(No abnormality) Initials: lp1 NIH Stroke Scale - NIH Stroke Score Date: 06/25/2019 Time: 20:00 Total Score = 4 1a. Level of Consciousness (LOC) - 0(Alert) 1b. Level of Consciousness (LOC) (Year \T\ Age) - 1(One) 1c. LOC Commands (Open \T\ Closes Eyes/Software Lead) - 0(Both) 2. Best Gaze (Lateral Gaze Paresis) - 0(Normal) 3. Visual Field Loss - 0(No visual loss) 4. Facial Palsy - 1(Minor Paralysis) 5a. Left Arm: Motor (10-second hold) - 0(No drift) 5b. Right Arm: Motor (10-second hold) - 0(No drift) 6a. Left Leg: Motor (5-second hold - always test supine) - 0(No drift) 6b. Right Leg: Motor (5-second hold - always test supine) - 1(Drift) 7. Limb Ataxia (finger/nose \T\ heel/beck - test with eyes open) - 0(Absent) 8. Sensory Loss (pinprick arms/legs/face) - 0(Normal) 9. Best Language: Aphasia (description/naming/reading) - 1(Mild to moderate aphasia) 10. Dysarthria (speech clarity - read or repeat words) - 0(Normal) 11. Extinction and Inattention (visual/tactile/auditory/spatial/personal) - 0(No abnormality) Initials: lp1 NIH Stroke Scale - NIH Stroke Score Date: 06/25/2019 Time: 20:45 Total Score = 3 1a. Level of Consciousness (LOC) - 0(Alert) 1b. Level of Consciousness (LOC) (Year \T\ Age) - 2(Neither) 1c. LOC Commands (Open \T\ Closes Eyes/Software Lead) - 0(Both) 2. Best Gaze (Lateral Gaze Paresis) - 0(Normal) 3. Visual Field Loss - 0(No visual loss) 4. Facial Palsy - 0(Normal) 5a. Left Arm: Motor (10-second hold) - 0(No drift) 5b. Right Arm: Motor (10-second hold) - 0(No drift) 6a. Left Leg: Motor (5-second hold - always test supine) - 0(No drift) 6b. Right Leg: Motor (5-second hold - always test supine) - 0(No drift) 7. Limb Ataxia (finger/nose \T\ heel/beck - test with eyes open) - 0(Absent) 8. Sensory Loss (pinprick arms/legs/face) - 0(Normal) 9. Best Language: Aphasia (description/naming/reading) - 1(Mild to moderate aphasia) 10. Dysarthria (speech clarity - read or repeat words) - 0(Normal) 11. Extinction and Inattention (visual/tactile/auditory/spatial/personal) - 0(No abnormality) Initials: jose Signatures: Dispatcher [employer] EDMS Afia Rivera RN RN Dee Dee Quispe RN RN lp1 Aubrey Stewart PA PA 8 Castillo Polanco RN RN jd3 Corrections: (The following items were deleted from the chart) 20:14 20:08 Presenting complaint: EMS states: that pt had been sitting in her chair for some time and at 2014 the staff noted that pt had a right facial droop and slurred speech. Also pt has had abd pain and diarrhea x 3 days. Hard to get total assessment due to pts severe dementia. 20:14 20:08 Transition of care: patient was not received from another setting of care. 20:14 20:08 An acute neurological deficit is present. The charge nurse has been notified. The patient has been moved to a treatment area. The patients blood glucose was checked before arriving to the hospital and was found to be normal. 20:14 20:08 Onset of symptoms was June 25, 2019 [facility] 20:14 20:08 Risk Assessment: Do you want to hurt yourself or someone else? Patient reports no desire to harm self or others. 20:14 20:08 Initial Sepsis Screen: [facility] 20:14 20:08 Care prior to arrival: IV initiated. 20 GA, in the right wrist, Glucose check: 113 20:14 20:08 Method Of Arrival: EMS: [facility] 20:14 20:08 ED Attending Parker/Aubrey notified at 19:57, arrived at 19:58; unknown time of onset 06/26 02:41 06/25 22:02 Patient left the ED. lp1
--- NOTE | 2019-06-26 08:18 | EKG ---
Test Date: 2019-06-25 Test Time: 20:27:32 Superintendent Meters: JANELLE MEASUREMENT RESULTS: Intervals: Rate: 91 TX: 152 QRSD: 78 QT: 386 QTc: 474 Seibert: P: 77 TX: 152 QRS: -25 T: 76 INTERPRETIVE STATEMENTS: Normal sinus rhythm Normal ECG Compared to ECG 01/09/2019 15:09:04 No significant changes Electronically Signed On 06-26-19 08:16:01 [employer] by Jerry Escobar
== END 2019-06-25 22:02 | disposition home or self-care (01) ==
LOC: ER 20:00
DX: R47.81 Slurred speech (principal); Z00.00 Encounter for general adult medical examination without abnormal findings; I10 Essential (primary) hypertension; F03.90 Unspecified dementia, unspecified severity, without behavioral disturbance, psychotic disturbance, mood disturbance, and anxiety; F32.9 Major depressive disorder, single episode, unspecified
CPT/HCPCS: 36415; 70450; 71045; 80048; 80076; 82947; 83735; 83880; 84484; 85025; 85610; 93005

== ENCOUNTER 2019-09-10 14:14 | Emergency (ER) | payer OTHER, BC ==
--- OUTSIDE RECORDS SUMMARY | 2019-09-10 14:16 | XMS REPORT ---
:1945 [facility] Address [address] [place] [address] Dr. Tesfaye [address] [place] [id number] Care Team Providers Name Role Phone Unavailable Unavailable Unavailable Problems This patient has no known problems. Allergies, Adverse Reactions, Alerts This patient has no known allergies or adverse reactions. Medications This patient has no known medications.
[2019-09-10 14:43] LABS: Absolute Lymphocytes (CBC) 2.1 K/uL (0.7-4.9); Basophils % 0.6 % (0-1.3); Hematocrit 40.8 % (36.0-45.0); Lymphocytes % 26.7 % (15.3-44.8); MPV 9.3 fL (7.6-11.3); RBC Red Blood Cell Count 4.86 M/uL (3.86-4.86)
[2019-09-10 15:22] LABS: ALT/SGPT 16 U/L (12-78); AST/SGOT 20 U/L (15-37); Albumin 3.2 g/dL (3.4-5.0); Alkaline Phosphatase 82 U/L (45-117); BUN Blood Urea Nitrogen 27 mg/dL (7-18); Bicarbonate 31 mmol/L (21-32); Bilirubin Direct < 0.1 mg/dL (0-0.2); Bilirubin Total 0.2 mg/dL (0.2-1.0); Glucose Level 111 mg/dL (74-106); Lipase 197 U/L (73-393); Protein, Total 7.6 g/dL (6.4-8.2); Sodium Level 140 mmol/L (136-145)
[2019-09-10] MEDS ORDERED: LORazepam 2 MG/ML VIAL ONE (15:32)
--- NOTE | 2019-09-10 16:07 | RAD REPORT ---
EXAM DESCRIPTION: CTAbdomen Pelvis W Contrast - 09/10/2019 3:55 pm CLINICAL HISTORY: Abdominal pain. ABD PAIN COMPARISON: No comparisons TECHNIQUE: Biphasic CT imaging of the abdomen and pelvis was performed with 100 ml non-ionic IV cont rast. All CT scans are performed using dose optimization technique as appropriate and may include automated exposure control or mA/KV adjustment according to patient size. FINDINGS: Bronchiectasis is present in both lung bases with tree-in-bud opacities suggesting atypica l infection.Moderate hiatal hernia. The liver, spleen, pancreas, adrenal glands and kidneys are within normal limits. Several benign righ t renal cysts. Atherosclerosis of the abdominal aorta and iliac vessels. No bowel obstruction, free air, free fluid or abscess. Prominent stool is present throughout the colo n. The appendix is normal. No evidence of significant lymphadenopathy. Mild degenerative changes are present at the lumbosacral junction. IMPRESSION: Moderate stool is present in the colon. Moderate hiatal hernia.
[2019-09-10] MEDS ORDERED: NA CHLORIDE 0.9% 500 ML ONE (16:08)
--- NOTE | 2019-09-10 16:23 | ER ---
Nurse's Notes [facility] Name: Elisa Buckner Age: 74 yrs Sex: Female : 1945 Arrival Date: 09/10/2019 Time: 14:18 Bed 28 Private MD: Diagnosis: Constipation Presentation: 09/10 14:37 Presenting complaint: EMS states: PER [facility] PT HAS BEEN COMPLAINING OF LOWER ls4 ABDOMINAL PAIN TODAY. PT IS POOR HISTORIAN SO UNCLEAR TO WHEN PAIN BEGAN. Transition of care: patient was not received from another setting of care. Onset of symptoms is unknown. Risk Assessment: Do you want to hurt yourself or someone else? Patient reports no desire to harm self or others. Initial Sepsis Screen: Does the patient meet any 2 criteria? No. Patient's initial sepsis screen is negative. Does the patient have a suspected source of infection? No. Patient's initial sepsis screen is negative. Care prior to arrival: None. 14:37 Method Of Arrival: EMS: [facility] ls4 14:37 Acuity: DAMI 3 ls4 Triage Assessment: 14:40 General: Appears uncomfortable, Behavior is cooperative. Pain: Complains of pain in ls4 suprapubic area, right lower quadrant and left lower quadrant. Neuro: No deficits noted. GI: Abdomen is non-distended, Bowel sounds hyperactive in right upper quadrant, left upper quadrant, right lower quadrant and left lower quadrant Abd is soft Abdomen is tender to palpation in right lower quadrant and left lower quadrant. Historical: - Allergies: 14:40 Biaxin; ls4 - PMHx: 14:40 Dementia; Vascular; Hypertension; Minor Epilepsy; Depression; ls4 - Immunization history:: Adult Immunizations up to date. - Coronavirus screen:: The patient has NOT traveled to [place], [place], or [place] in the past 14 days. Proceed with normal triage process as indicated. The patient has NOT had contact with known/suspected case of Coronavirus? Proceed with normal triage procedures. - Social history:: Smoking status: Patient denies any tobacco usage or history of. The patient lives in an assisted living [place], [facility]. - Ebola Screening: : No symptoms or risks identified at this time. Screenin:50 Abuse screen: Denies threats or abuse. Denies injuries from another. Nutritional ls4 screening: No deficits noted. Tuberculosis screening: No symptoms or risk factors identified. Fall Risk None identified. Assessment: 14:49 General: SEE TRIAGE ASSESSMENT . Respiratory: Airway is patent Respiratory effort is ls4 even, unlabored, Respiratory pattern is regular. Derm: Skin is pink, warm \T\ dry. 16:00 Reassessment: Patient appears in no apparent distress at this time. Patient and/or ls4 family updated on plan of care and expected duration. Pain level reassessed. Patient is alert, oriented x 3, equal unlabored respirations, skin warm/dry/pink. Patient states symptoms have improved. 16:45 Reassessment: Patient appears in no apparent distress at this time. Patient and/or ls4 family updated on plan of care and expected duration. Pain level reassessed. Patient is alert, oriented x 3, equal unlabored respirations, skin warm/dry/pink. Vital Signs: 14:20 BP 146 / 85; Pulse 85; Resp 18; Temp 98.6(A); Pulse Ox 99% ; lt1 14:40 BP 123 / 60; Pulse 80; Resp 20; Temp 98.6; Pulse Ox 99% on R/A; Weight 49.44 kg; Height ls4 5 ft. 0 in. (152.40 cm); Pain 8/10; 16:13 BP 122 / 60; Pulse 78; Resp 14; Temp 98; Pulse Ox 98% on R/A; Pain 0/10; ls4 17:00 BP 120 / 82; Pulse 78; Resp 14; Temp 98.1; Pulse Ox 99% on R/A; Pain 0/10; ls4 14:40 Body Mass Index 21.29 (49.44 kg, 152.40 cm) ls4 ED Course: 14:18 Patient arrived in ED. ls4 14:18 Joan Sylvester, RN is Primary Nurse. ls4 14:39 Triage completed. ls4 14:40 Arm band placed on left wrist. ls4 14:49 No provider procedures requiring assistance completed. Inserted saline lock: 18 gauge ls4 in left antecubital area, using aseptic technique. Blood collected. 14:50 Patient has correct armband on for positive identification. Placed in gown. Bed in low ls4 position. Call light in reach. Side rails up X2. Pulse ox on. NIBP on. Warm blanket given. Pillow given. Verbal reassurance given. Diet: Patient is NPO. 14:50 Initial lab(s) drawn, by me, sent to lab. ls4 15:00 Aubrey Stewart PA is PHCP. jr8 15:00 Armando Canales MD is Attending Physician. jr8 15:56 CT Abd/Pelvis - IV Contrast Only In Process Unspecified. EDMS 15:56 Straight cath inserted, using sterile technique, 16 Fr. Returned clear yellow urine. lt1 Patient tolerated well. 17:03 IV discontinued, intact. Patient maintains SpO2 saturation greater than 95% on room air.ls4 Administered Medications: 15:15 Drug: Ativan 1 mg Route: IVP; Site: left antecubital; ls4 15:45 Follow up: Response: No adverse reaction; Marked relief of symptoms ls4 16:02 Drug: NS 0.9% 500 ml Route: IV; Rate: bolus; Site: left antecubital; ls4 16:30 Follow up: IV Status: Completed infusion; IV Intake: 500ml ls4 Intake: 16:30 IV: 500ml; Total: 500ml. ls4 Outcome: 16:22 Discharge ordered by . jr8 17:02 Discharged to home via wheelchair, with family. ls4 17:02 Condition: stable 17:02 Discharge instructions given to patient, family, Instructed on discharge instructions, follow up and referral plans. medication usage, Demonstrated understanding of instructions, Prescriptions given X 1. 17:06 Patient left the ED. ls4 Signatures: Dispatcher [employer] EDCT Aubrey Stewart PA PA jr8 Joan Sylvester, RN RN ls4 Chayo Stringer lt1
--- NOTE | 2019-09-10 16:23 | EDPHYS ---
Physician Documentation [facility] Name: Elisa Buckner Age: 74 yrs Sex: Female : 1945 Arrival Date: 09/10/2019 Time: 14:18 Bed 28 Private MD: ED Physician Armando Canales HPI: 09/10 15:42 This 74 yrs old Female presents to ER via EMS with complaints of Abd Pain > jr8 48 y/o. 15:42 The patient presents with abdominal pain. Onset: The symptoms/episode began/occurred jr8 acutely, today. Associated signs and symptoms: none. Severity of pain: At its worst the pain was mild in the emergency department the pain is unchanged. It is unknown whether or not the patient has had similar symptoms in the past. The patient has not recently seen a physician. Patient with history of dementia. [place] staff reported that she looked as if she was in pain and felt that her abdomen was bloated. Was sent to ED for further evaluation at that time . Historical: - Allergies: 14:40 Biaxin; ls4 - PMHx: 14:40 Dementia; Vascular; Hypertension; Minor Epilepsy; Depression; ls4 - Immunization history:: Adult Immunizations up to date. - Coronavirus screen:: The patient has NOT traveled to [place], [place], or [place] in the past 14 days. Proceed with normal triage process as indicated. The patient has NOT had contact with known/suspected case of Coronavirus? Proceed with normal triage procedures. - Social history:: Smoking status: Patient denies any tobacco usage or history of. The patient lives in an assisted living center, [facility]. - Ebola Screening: : No symptoms or risks identified at this time. ROS: 15:42 Unable to obtain ROS due to baseline dementia. jr8 Exam: 15:42 Eyes: Pupils equal round and reactive to light, extra-ocular motions intact. Lids and jr8 lashes normal. Conjunctiva and sclera are non-icteric and not injected. Cornea within normal limits. Periorbital areas with no swelling, redness, or edema. ENT: Nares patent. No nasal discharge, no septal abnormalities noted. Tympanic membranes are normal and external auditory canals are clear. Oropharynx with no redness, swelling, or masses, exudates, or evidence of obstruction, uvula midline. Mucous membranes moist. Neck: Trachea midline, no thyromegaly or masses palpated, and no cervical lymphadenopathy. Supple, full range of motion without nuchal rigidity, or vertebral point tenderness. No Meningismus. Cardiovascular: Regular rate and rhythm with a normal S1 and S2. No gallops, murmurs, or rubs. Normal PMI, no JVD. No pulse deficits. Respiratory: Lungs have equal breath sounds bilaterally, clear to auscultation and percussion. No rales, rhonchi or wheezes noted. No increased work of breathing, no retractions or nasal flaring. Abdomen/GI: Soft with normal bowel sounds. No distension or tympany. No guarding or rebound. Mild grimace noted when palpated to lower abdomen Back: No spinal tenderness. No costovertebral tenderness. Full range of motion. Skin: Warm, dry with normal turgor. Normal color with no rashes, no lesions, and no evidence of cellulitis. MS/ Extremity: Pulses equal, no cyanosis. Neurovascular intact. Full, normal range of motion. Neuro: Awake and alert, GCS 14, oriented to person. Cranial nerves II-XII grossly intact. Motor strength 5/5 in all extremities. Sensory grossly intact. Vital Signs: 14:20 BP 146 / 85; Pulse 85; Resp 18; Temp 98.6(A); Pulse Ox 99% ; lt1 14:40 BP 123 / 60; Pulse 80; Resp 20; Temp 98.6; Pulse Ox 99% on R/A; Weight 49.44 kg; Height ls4 5 ft. 0 in. (152.40 cm); Pain 8/10; 16:13 BP 122 / 60; Pulse 78; Resp 14; Temp 98; Pulse Ox 98% on R/A; Pain 0/10; ls4 17:00 BP 120 / 82; Pulse 78; Resp 14; Temp 98.1; Pulse Ox 99% on R/A; Pain 0/10; ls4 14:40 Body Mass Index 21.29 (49.44 kg, 152.40 cm) ls4 MDM: 15:00 Patient medically screened. jr8 16:17 Differential diagnosis: AAA, bowel obstruction, diverticulitis, gastritis, jr8 gastroesophageal reflux disease, GI Bleed, Herpes Zoster, Irritable bowel syndrome, myocardia ischemia or infarction, non-specific abd pain, pancreatitis, Peptic Ulcer Disease, Perf. Duodenal Ulcer, Perf. Gastric Ulcer, Peritonitis, Pyelonephritis, Ureterolithiasis, urinary tract infection, colitis, constipation, hernia. Data reviewed: vital signs, nurses notes, lab test result(s), radiologic studies, CT scan. Data interpreted: Pulse oximetry: on room air is 98 %. Interpretation: normal. Counseling: I had a detailed discussion with the patient and/or guardian regarding: the historical points, exam findings, and any diagnostic results supporting the discharge/admit diagnosis, lab results, radiology results, the need for outpatient follow up, a family practitioner, to return to the emergency department if symptoms worsen or persist or if there are any questions or concerns that arise at home. Special discussion: Based on the patient's Hx, exam, and Dx evaluation, there is no indication for emergent surgery or inpatient Tx. It is understood by the patient/guardian that if the Sx's persist or worsen they need to return immediately for re-evaluation. 09/10 14:19 Order name: Basic Metabolic Panel; Complete Time: 15:41 [facility] 09/10 14:19 Order name: CBC with Diff; Complete Time: 15:00 [facility] 09/10 14:19 Order name: Creatinine for Radiology; Complete Time: 15:41 [facility] 09/10 14:19 Order name: Hepatic Function; Complete Time: 15:41 [facility] 09/10 14:19 Order name: Lipase; Complete Time: 15:41 [facility] 09/10 14:19 Order name: IV Saline Lock; Complete Time: 14:37 [facility] 09/10 14:19 Order name: Labs collected and sent; Complete Time: 14:37 [facility] 09/10 14:51 Order name: Urine Dipstick-Ancillary (obtain specimen); Complete Time: 15:57 [facility] 09/10 15:20 Order name: Straight Cath - Urine; Complete Time: 15:57 [facility] 09/10 15:42 Order name: CT Abd/Pelvis - IV Contrast Only; Complete Time: 16:16 [facility] 09/10 15:44 Order name: Urine Dipstick--Ancillary (enter results); Complete Time: 16:36 bd Administered Medications: 15:15 Drug: Ativan 1 mg Route: IVP; Site: left antecubital; ls4 15:45 Follow up: Response: No adverse reaction; Marked relief of symptoms ls4 16:02 Drug: NS 0.9% 500 ml Route: IV; Rate: bolus; Site: left antecubital; ls4 16:30 Follow up: IV Status: Completed infusion; IV Intake: 500ml ls4 Disposition: 17:08 Co-signature as Attending Physician, Armando Canales MD I agree with the assessment and [facility] plan of care. Disposition: 09/10/19 16:22 Discharged to Home. Impression: Constipation. - Condition is Stable. - Discharge Instructions: Constipation, Adult. - Prescriptions for Miralax 17 gram/dose Oral - take 1 packet by ORAL route once daily dilute powder in 8 ounces of water or juice; 1 box. - Medication Reconciliation Form, Thank You Letter, Antibiotic Education, Prescription Opioid Use form. - Follow up: Private Physician; When: 5 - 6 days; Reason: Recheck today's complaints, Continuance of care, Re-evaluation by your physician. - Problem is new. - Symptoms are unchanged. Signatures: Dispatcher [employer] [facility] Armando Canales MD MD cha Roszak, Josh, PA PA jr8 Joan Sylvester RN RN ls4 Corrections: (The following items were deleted from the chart) 17:06 16:22 09/10/2019 16:22 Discharged to Home. Impression: Constipation. Condition is ls4 Stable. Forms are Medication Reconciliation Form, Thank You Letter, Antibiotic Education, Prescription Opioid Use. Follow up: Private Physician; When: 5 - 6 days; Reason: Recheck today's complaints, Continuance of care, Re-evaluation by your physician. Problem is new. Symptoms are unchanged. jr8
[2019-09-10 16:30] LABS: Urine Blood NEGATIVE (NEG); Urine Glucose NEGATIVE (NEG); Urine Protein NEGATIVE (NEG); Urine Specific Gravity 1.015 (1.005-1.030)
[2019-09-10 19:31] VITALS: BP 120/82; TEMP 98.1; O2SAT 99
== END 2019-09-10 17:06 | disposition home or self-care (01) ==
LOC: ER 14:14
DX: K59.00 Constipation, unspecified (principal); I10 Essential (primary) hypertension; F03.90 Unspecified dementia, unspecified severity, without behavioral disturbance, psychotic disturbance, mood disturbance, and anxiety; Z88.8 Allergy status to other drugs, medicaments and biological substances
CPT/HCPCS: 85025; 80048; 36415; 80076; 81003; 83690; 74177; 51702; 96374; 99285; Q9967; J7040

== ENCOUNTER 2019-10-20 21:13 | Emergency (ER) | payer OTHER, BC ==
--- OUTSIDE RECORDS SUMMARY | 2019-10-20 21:16 | XMS REPORT ---
:1945 [facility] Address [address] [place] [address] Dr. Tesfaye [address] [place] [id number] Care Team Providers Name Role Phone Unavailable Unavailable Unavailable Problems This patient has no known problems. Allergies, Adverse Reactions, Alerts This patient has no known allergies or adverse reactions. Medications This patient has no known medications.
--- NOTE | 2019-10-20 22:47 | ER ---
Nurse's Notes [facility] Name: Elisa Buckner Age: 74 yrs Sex: Female : 1945 Arrival Date: 10/20/2019 Time: 21:15 Bed 30 Private MD: Diagnosis: Fall on same level from slipping, tripping and stumbling;Contusion of unspecified part of head Presentation: 10/19 21:26 Chief complaint: EMS states: "the pt had an unwitnessed fall today. she does have jd3 dementia, but was able to report that she maybe hit her head. she is on blood thinners we found no injuries and her mentation is at baseline per [facility]. because of her dementia it is hard to get an idea of where or if she is having pain.". Coronavirus screen: The patient has NOT traveled to a country currently being monitored by the CDC within the last 14 days. The patient has NOT had contact with any known and/or suspected case of coronavirus. Proceed with normal triage procedures. Ebola Screen: Patient negative for fever greater than or equal to 101.5 degrees Fahrenheit, and additional compatible Ebola Virus Disease symptoms. Initial Sepsis Screen: Does the patient meet any 2 criteria? No. Patient's initial sepsis screen is negative. Does the patient have a suspected source of infection? No. Patient's initial sepsis screen is negative. Risk Assessment: Do you want to hurt yourself or someone else? Patient reports no desire to harm self or others. Care prior to arrival: Placed on backboard. Medication(s) given: Normal saline infusion, 450 ml IV initiated. 20 GA, in the right antecubital area, Glucose check: 118 Oxygen administered. via nasal cannula. Transition of care: patient was received from another setting of care (long-term care facility), [facility]. 21:26 Method Of Arrival: EMS: [facility] 21:26 Acuity: DAMI [address] [facility] 21:32 Mechanism of Injury: Fall from standing position. Trauma event details: Injury occurred j in the [facility], Injury occurred: in an institution. Injury occurred: October 20, 2019. 21:36 Onset of symptoms was October 20, [address]. [facility] Trauma Activation: Alert Physician: ED Physician; Name: Susannah; Notified At: 21:08; Arrived At: 21:08 Physician: General Surgeon; Name: ; Notified At: 21:08; Arrived At: Physician: Radiology; Name: Adilene Elena; Notified At: 21:08; Arrived At: 21:08 Physician: Respiratory; Name: ; Notified At: 21:08; Arrived At: Physician: Lab; Name: ; Notified At: 21:08; Arrived At: Historical: - Allergies: 21:31 Biaxin; jd3 - Home Meds: 21:31 acetaminophen 500 mg Oral tab 1 tab q6hrs prn [Active]; aspirin 81 mg Oral TbEC 1 tab jd3 once daily [Active]; Ativan 0.5 mg Oral tab 1 tab q6hrs prn [Active]; multivitamin with minerals 9 mg iron/15 mL Oral liqd daily [Active]; losartan 50 mg Oral tab 1 tab once daily [Active]; quetiapine 300 mg Oral tab 1 tab nightly [Active]; Vitamin D Oral 1000 unit daily [Active]; Zofran (as hydrochloride) 4 mg Oral tab 1 tabs q6hrs prn [Active]; - PMHx: 21:31 Hypertension; Minor Epilepsy; Depression; Dementia; Vascular; jd3 - PSHx: 21:31 Unable to obtain; jd3 - Immunization history:: Adult Immunizations unknown. - Social history:: Smoking status: Patient denies any tobacco usage or history of. - Immunization history: Last tetanus immunization: unknown. Screenin:35 Abuse screen: Denies threats or abuse. Nutritional screening: No deficits noted. jd3 Tuberculosis screening: No symptoms or risk factors identified. 21:37 Fall Risk Fall in past 12 months (25 points). IV access (20 points). Mental Status- jd3 Overestimates/Forgets Limitations (15 pts.). Total Chun Fall Scale indicates High Risk Score (45 or more points). Fall prevention measures have been instituted. Side Rails Up X 2 Placed Close to Nursing Station Frequent Obs/Assessments Occuring. Primary Survey: 21:34 NO uncontrolled hemorrhage observed. A: The patient is alert. Breathing/Chest: jd3 Respiratory pattern: regular, Respiratory effort: spontaneous, unlabored, Breath sounds: clear, bilaterally. Chest inspection: symmetrical rise and fall of the chest. Circulation: Heart tones present. Skin color: pink, Skin temperature: warm. Disability Alert. Exposure/Environment: All clothing and personal items were removed. Forensic evidence collection is not deemed to be indicated at this time. Items placed in patient belonging bag. There is no evidence of uncontrolled external bleeding. No obvious injuries are noted at this time. A warming method has been applied: A warm blanket has been provided to the patient. 22:05 Reassessment Airway Airway Patent Oxygen No O2 Oral cavity Clear Trachea Midline jd3 Breathing/Chest Respiratory pattern Regular Respiratory effort Spontaneous Unlabored Breath sounds Clear Chest inspection Symmetrical Circulation Heart tones Present Pulses Palpable Color Moca Temperature Warm Disability Alert. Secondary Survey: 21:35 HEENT: No deficits noted. Gastrointestinal: Abdomen is soft, Bowel sounds present in jd3 all quadrants. Palpation No deficit noted. : No signs and/or symptoms were reported regarding the genitourinary system. Musculoskeletal: Circulation, motion, and sensation intact. Range of motion: intact in all extremities. Assessment: 21:33 General: Appears in no apparent distress. comfortable, Behavior is calm, cooperative. jd3 Pain: Denies pain. Neuro: Level of Consciousness is awake, alert, obeys commands, Oriented to person. EENT: No signs and/or symptoms were reported regarding the EENT system. Cardiovascular: Heart tones S1 S2 present Capillary refill < 3 seconds Patient's skin is warm and dry. Respiratory: Airway is patent Respiratory effort is even, unlabored, Respiratory pattern is regular, symmetrical, Breath sounds are clear bilaterally. Denies cough, shortness of breath. GI: Abdomen is round non-distended, Bowel sounds present X 4 quads. Abd is soft and non tender X 4 quads. Patient currently denies nausea, vomiting. : No signs and/or symptoms were reported regarding the genitourinary system. Derm: Skin is intact, Skin is dry, Skin is normal, Skin temperature is warm. Musculoskeletal: Circulation, motion, and sensation intact. Range of motion: intact in all extremities. 22:25 Reassessment: Patient appears in no apparent distress at this time. No changes from jd3 previously documented assessment. Patient and/or family updated on plan of care and expected duration. Pain level reassessed. at bedside Patient denies pain at this time. 22:50 Reassessment: Patient appears in no apparent distress at this time. No changes from jd3 previously documented assessment. Patient and/or family updated on plan of care and expected duration. Pain level reassessed. awaiting provider fallow up with pt and family to discharge. Patient denies pain at this time. 23:00 Reassessment: Patient appears in no apparent distress at this time. Patient and/or jd3 family updated on plan of care and expected duration. Pain level reassessed. discharge instructions given to pt's . assisted pt to vehicle with via wheelchair. Vital Signs: 21:35 BP 135 / 82; Pulse 84; Resp 16 S; Temp 97.5(O); Pulse Ox 94% on R/A; Weight 49.9 kg jd3 (R); Height 5 ft. 2 in. (157.48 cm) (R); Pain 0/10; 22:25 BP 115 / 75; Pulse 86; Resp 17 S; Pulse Ox 94% on R/A; Pain 0/10; jd3 21:35 Body Mass Index 20.12 (49.90 kg, 157.48 cm) jd3 [place] Coma Score: 21:36 Eye Response: spontaneous(4). Verbal Response: confused(4). Motor Response: obeys jd3 commands(6). Total: 14. 22:49 Eye Response: spontaneous(4). Verbal Response: confused(4). Motor Response: obeys jd3 commands(6). Total: 14. 03 06:40 Eye Response: spontaneous(4). Verbal Response: oriented(5). Motor Response: obeys tw4 commands(6). Total: 15. Trauma Score (Adult): 10/19 21:36 Eye Response: spontaneous(1); Verbal Response: confused(1); Motor Response: obeys jd3 commands(2); Systolic BP: > 89 mm Hg(4); Respiratory Rate: 10 to 29 per min(4); [place] Score: 14; Trauma Score: 12 22:49 Eye Response: spontaneous(1); Verbal Response: confused(1); Motor Response: obeys jd3 commands(2); Systolic BP: > 89 mm Hg(4); Respiratory Rate: 10 to 29 per min(4); Terese Score: 14; Trauma Score: 12 ED Course: 21:15 Patient arrived in ED. cl3 21:19 Shay Davalos MD is Attending Physician. tw4 21:26 Castillo Polanco RN is Primary Nurse. jd3 21:29 Triage completed. jd3 21:32 Arm band placed on. jd3 21:35 Maintain EMS IV. Dressing intact. Good blood return noted. Site clean \\T\\ dry. Gauge \\T\\ beena 3 site: 20 G right IV. Patient maintains SpO2 saturation greater than 95% on room air. 21:36 Patient has correct armband on for positive identification. Placed in gown. Bed in low jd3 position. Call light in reach. Side rails up X2. corporate director of human resources on. Pulse ox on. NIBP on. 21:36 Thermoregulation: warm blanket given to patient. jd3 21:47 CT Head C Spine In Process Unspecified. EDMS 21:[address] In Process Unspecified. EDMS 23:00 No provider procedures requiring assistance completed. IV discontinued, intact, jd3 bleeding controlled, No redness/swelling at site. Pressure dressing applied. Administered Medications: No medications were administered Intake: 23:04 PO: 0ml; Total: 0ml. jd3 Output: 23:04 Urine: 0ml; Total: 0ml. jd3 Outcome: 22:44 Discharge ordered by . tw4 23:03 Discharged to home via wheelchair, with family. jd3 23:03 Condition: stable 23:03 Discharge instructions given to family, significant other, Instructed on discharge instructions, follow up and referral plans. Demonstrated understanding of instructions. 23:04 Patient's length of stay was not longer than 2 hours. jd3 23:16 Patient left the ED. jd3 Signatures: Dispatcher [employer] EDWY Castillo Polanco, DUNCAN RN jd3 Shay Davalos MD MD tw4 Jam Beckwith cl3 Corrections: (The following items were deleted from the chart) 21:31 21:26 Care prior to arrival: Placed on backboard. IV initiated. 20 GA, in the right jd3 antecubital area, Glucose check: 118 Oxygen administered. via nasal cannula, jd3 22:50 22:25 Pulse 86bpm; Resp 17bpm; Spontaneous; Pulse Ox 94% RA; Pain 0/10; jd3 jd3
--- NOTE | 2019-10-20 22:47 | EDPHYS ---
Physician Documentation [facility] Name: Elisa Buckner Age: 74 yrs Sex: Female : 1945 Arrival Date: 10/20/2019 Time: 21:15 Bed 30 Private MD: ED Physician Shay Davalos HPI: 10/20 06:40 This 74 yrs old Female presents to ER via EMS with complaints of Facial tw4 Injury. 06:40 The patient or guardian reports injury. The complaints affect the left occipital area. tw4 Context of injury: The problem was sustained at a long term or assisted living facility. Onset: The symptoms/episode began/occurred just prior to arrival. Associated signs and symptoms: The patient has no apparent associated signs or symptoms, Loss of consciousness: This patient did not experience any loss of consciousness. Severity of symptoms: At their worst the symptoms were very mild, in the emergency department the symptoms are unchanged. The patient has not experienced similar symptoms in the past. Historical: - Allergies: 10/19 21:31 Biaxin; jd3 - Home Meds: 21:31 acetaminophen 500 mg Oral tab 1 tab q6hrs prn [Active]; aspirin 81 mg Oral TbEC 1 tab jd3 once daily [Active]; Ativan 0.5 mg Oral tab 1 tab q6hrs prn [Active]; multivitamin with minerals 9 mg iron/15 mL Oral liqd daily [Active]; losartan 50 mg Oral tab 1 tab once daily [Active]; quetiapine 300 mg Oral tab 1 tab nightly [Active]; Vitamin D Oral 1000 unit daily [Active]; Zofran (as hydrochloride) 4 mg Oral tab 1 tabs q6hrs prn [Active]; - PMHx: 21:31 Hypertension; Minor Epilepsy; Depression; Dementia; Vascular; jd3 - PSHx: 21:31 Unable to obtain; jd3 - Immunization history:: Adult Immunizations unknown. - Social history:: Smoking status: Patient denies any tobacco usage or history of. - Immunization history: Last tetanus immunization: unknown. ROS: 10/20 06:40 Constitutional: Negative for fever, chills, and weight loss, Eyes: Negative for injury, tw4 pain, redness, and discharge, Cardiovascular: Negative for chest pain, palpitations, and edema, Respiratory: Negative for shortness of breath, cough, wheezing, and pleuritic chest pain, Abdomen/GI: Negative for abdominal pain, nausea, vomiting, diarrhea, and constipation, Back: Negative for injury and pain, Skin: Negative for injury, rash, and discoloration, Neuro: Negative for headache, weakness, numbness, tingling, and seizure. Exam: 06:40 Constitutional: This is a well developed, well nourished patient who is awake, alert, tw4 and in no acute distress. Head/Face: Normocephalic, atraumatic. Chest/axilla: Normal chest wall appearance and motion. Nontender with no deformity. No lesions are appreciated. Cardiovascular: Regular rate and rhythm with a normal S1 and S2. No gallops, murmurs, or rubs. Normal PMI, no JVD. No pulse deficits. Respiratory: Lungs have equal breath sounds bilaterally, clear to auscultation and percussion. No rales, rhonchi or wheezes noted. No increased work of breathing, no retractions or nasal flaring. Abdomen/GI: Soft, non-tender, with normal bowel sounds. No distension or tympany. No guarding or rebound. No evidence of tenderness throughout. Back: No spinal tenderness. No costovertebral tenderness. Full range of motion. MS/ Extremity: Pulses equal, no cyanosis. Neurovascular intact. Full, normal range of motion. Neuro: Awake and alert, GCS 15, oriented to person, place, time, and situation. Cranial nerves II-XII grossly intact. Motor strength 5/5 in all extremities. Sensory grossly intact. Cerebellar exam normal. Normal gait. Vital Signs: 10/19 21:35 BP 135 / 82; Pulse 84; Resp 16 S; Temp 97.5(O); Pulse Ox 94% on R/A; Weight 49.9 kg jd3 (R); Height 5 ft. 2 in. (157.48 cm) (R); Pain 0/10; 22:25 BP 115 / 75; Pulse 86; Resp 17 S; Pulse Ox 94% on R/A; Pain 0/10; jd3 21:35 Body Mass Index 20.12 (49.90 kg, 157.48 cm) jd3 Oracle Coma Score: 21:36 Eye Response: spontaneous(4). Verbal Response: confused(4). Motor Response: obeys jd3 commands(6). Total: 14. 22:49 Eye Response: spontaneous(4). Verbal Response: confused(4). Motor Response: obeys jd3 commands(6). Total: 14. 10/20 06:40 Eye Response: spontaneous(4). Verbal Response: oriented(5). Motor Response: obeys tw4 commands(6). Total: 15. Trauma Score (Adult): 10/19 21:36 Eye Response: spontaneous(1); Verbal Response: confused(1); Motor Response: obeys jd3 commands(2); Systolic BP: > 89 mm Hg(4); Respiratory Rate: 10 to 29 per min(4); Oracle Score: 14; Trauma Score: 12 22:49 Eye Response: spontaneous(1); Verbal Response: confused(1); Motor Response: obeys jd3 commands(2); Systolic BP: > 89 mm Hg(4); Respiratory Rate: 10 to 29 per min(4); Oracle Score: 14; Trauma Score: 12 MDM: 21:19 Patient medically screened. tw4 10/20 06:40 Differential diagnosis: Contusion of Hematoma on. Differential diagnosis: Contusion of tw4 head. Data reviewed: vital signs, nurses notes. Data reviewed: EMS record, long term records, radiologic studies, CT scan. Counseling: I had a detailed discussion with the patient and/or guardian regarding: the historical points, exam findings, and any diagnostic results supporting the discharge/admit diagnosis. Special discussion: Based on the patient's history, exam and DX evaluation, there is no indication for emergent intervention or inpatient TX. It is understood by the patient/guardian that if the SXs persist or worsen they need to return immediately for re-evaluation. I discussed with the patient/guardian in detail that at this point there is no indication for admission to the hospital. It is understood, however, that if the symptoms persist or worsen the patient needs to return immediately for re-evaluation. 10/19 21:19 Order name: CT Head C Spine tw4 10/19 21:19 Order name: Pelvis Wo Cont CT tw4 Administered Medications: No medications were administered Disposition: 10/20/19 22:44 Discharged to Home. Impression: Fall on same level from slipping, tripping and stumbling, Contusion of unspecified part of head. - Condition is Stable. - Discharge Instructions: Contusion, Head Injury, Adult, [id number]. - Medication Reconciliation Form, Thank You Letter, Antibiotic Education, Prescription Opioid Use form. - Follow up: Private Physician; When: Upon discharge from the Emergency Department; Reason: Recheck today's complaints, Continuance of care. - Problem is new. - Symptoms have improved. Signatures: Dispatcher [employer] Castillo Gutierrez RN RN jd3 Shay Davalos MD MD tw4 Corrections: (The following items were deleted from the chart) 10/19 23:16 22:44 10/20/2019 22:44 Discharged to Home. Impression: Fall on same level from jd3 slipping, tripping and stumbling; Contusion of unspecified part of head. Condition is Stable. Forms are Medication Reconciliation Form, Thank You Letter, Antibiotic Education, Prescription Opioid Use. Follow up: Private Physician; When: Upon discharge from the Emergency Department; Reason: Recheck today's complaints, Continuance of care. Problem is new. Symptoms have improved. tw4
[2019-10-20 23:33] VITALS: TEMP 97.5; O2SAT 94
[2019-10-20 23:35] VITALS: BP 115/75
--- NOTE | 2019-10-21 13:54 | RAD REPORT ---
EXAM DESCRIPTION: CT - Head C Spine Mpr Wo Con - 10/21/2019 4:33 am CLINICAL HISTORY: Trauma. COMPARISON: None. TECHNIQUE: 1. CT scan of the brain and cervical spine without IV contrast. 2. CT scan of the pelvis without IV contrast. This exam was performed according to our departmental dose-optimization program, which includes autom ated exposure control, adjustment of the mA and/or kV according to patient size and/or use of iterati ve reconstruction technique. FINDINGS: BRAIN: Diffuse involutional changes are present. There are scattered areas of hypoattenuation within the per iventricular white matter, which likely represent chronic microvascular ischemia. No evidence of acut e infarction, intracranial hemorrhage, extra-axial fluid collection, or midline shift. No air-fluid l evels are seen in the paranasal sinuses to suggest acute sinusitis. No depressed skull fracture. Ther e is focal scalp soft tissue swelling overlying the posterior left parietal region. CERVICAL SPINE: No acute cervical fracture or prevertebral soft tissue swelling. There is straightening of the normal cervical lordosis, which may be due to cervical collar, muscle spasm, or patient positioning. Multil evel degenerative disc disease along with facet arthropathy is present. No high-grade spinal canal st enosis. PELVIS: No acute fracture or dislocation is seen. The hip joints, sacroiliac joints, and pubic symphysis are intact. No acute intrapelvic findings are seen. IMPRESSION: 1. No acute intracranial hemorrhage or cervical fracture. 2. No acute pelvic fracture. Electronically signed by: Celestino Thacker MD 10/20/2019 10:06 PM CDT Due to temporary technical issues with the PACS/Fluency reporting system, reports are being signed by the in house radiologist as a courtesy to ensure prompt reporting. The interpreting radiologist is f ully responsible for the content of the report.
--- NOTE | 2019-10-21 13:57 | RAD REPORT ---
EXAM DESCRIPTION: CT - Pelvis Wo Cont - 10/20/2019 9:54 pm CLINICAL HISTORY: Trauma. COMPARISON: None. TECHNIQUE: 1. CT scan of the brain and cervical spine without IV contrast. 2. CT scan of the pelvis without IV contrast. This exam was performed according to our departmental dose-optimization program, which includes autom ated exposure control, adjustment of the mA and/or kV according to patient size and/or use of iterati ve reconstruction technique. FINDINGS: BRAIN: Diffuse involutional changes are present. There are scattered areas of hypoattenuation within the per iventricular white matter, which likely represent chronic microvascular ischemia. No evidence of acut e infarction, intracranial hemorrhage, extra-axial fluid collection, or midline shift. No air-fluid l evels are seen in the paranasal sinuses to suggest acute sinusitis. No depressed skull fracture. Ther e is focal scalp soft tissue swelling overlying the posterior left parietal region. CERVICAL SPINE: No acute cervical fracture or prevertebral soft tissue swelling. There is straightening of the normal cervical lordosis, which may be due to cervical collar, muscle spasm, or patient positioning. Multil evel degenerative disc disease along with facet arthropathy is present. No high-grade spinal canal st enosis. PELVIS: No acute fracture or dislocation is seen. The hip joints, sacroiliac joints, and pubic symphysis are intact. No acute intrapelvic findings are seen. IMPRESSION: 1. No acute intracranial hemorrhage or cervical fracture. 2. No acute pelvic fracture. Electronically signed by: Celestino Thacker MD 10/20/2019 10:06 PM CDT Due to temporary technical issues with the PACS/Fluency reporting system, reports are being signed by the in house radiologist as a courtesy to ensure prompt reporting. The interpreting radiologist is f ully responsible for the content of the report.
== END 2019-10-20 23:16 | disposition home or self-care (01) ==
LOC: ER 21:13
DX: S00.93XA Contusion of unspecified part of head, initial encounter (principal); W01.0XXA Fall on same level from slipping, tripping and stumbling without subsequent striking against object, initial encounter; Y93.9 Activity, unspecified; Y92.9 Unspecified place or not applicable; I10 Essential (primary) hypertension; F03.90 Unspecified dementia, unspecified severity, without behavioral disturbance, psychotic disturbance, mood disturbance, and anxiety; G40.909 Epilepsy, unspecified, not intractable, without status epilepticus
CPT/HCPCS: 70450; 72125; 72192; 99284

== ENCOUNTER 2020-02-29 13:40 | Emergency (ER) | payer OTHER, BC ==
--- OUTSIDE RECORDS SUMMARY | 2020-02-29 13:41 | XMS REPORT | Continuity of Care Document ---
:1945 Author Organization [facility] t Address [address] [place] [address] Dr. Tesfaye [address] [place] [id number] Care Team Providers Name Role Phone Unavailable Unavailable Unavailable Problems This patient has no known problems. Allergies, Adverse Reactions, Alerts This patient has no known allergies or adverse reactions. Medications This patient has no known medications. Procedures This patient has no known procedures. Results This patient has no known results.
[2020-02-29] MEDS ORDERED: NA CHLORIDE 0.9% 1,000 ML ONE (14:49)
[2020-02-29 15:05] LABS: Absolute Lymphocytes (CBC) 1.9 K/uL (0.7-4.9); Basophils % 0.3 % (0-1.3); Lymphocytes % 16.4 % (15.3-44.8); MPV 8.9 fL (7.6-11.3); Protime INR 0.96; RBC Red Blood Cell Count 4.76 M/uL (3.86-4.86)
[2020-02-29 15:19] LABS: ALT/SGPT 17 U/L (12-78); AST/SGOT 22 U/L (15-37); Albumin 3.1 g/dL (3.4-5.0); Alkaline Phosphatase 80 U/L (45-117); BUN Blood Urea Nitrogen 19 mg/dL (7-18); Bicarbonate 27 mmol/L (21-32); Bilirubin Direct < 0.1 mg/dL (0-0.2); Bilirubin Total 0.2 mg/dL (0.2-1.0); CKMB Creatine Kinase MB < 1.0 ng/mL (0.3-3.6); Creatine Phosphokinase 41 U/L (26-192); Glucose Level 112 mg/dL (74-106); Magnesium 2.7 mg/dL (1.8-2.4); NT PRO-BNP 406 pg/mL (<450); Potassium 4.6 mmol/L (3.5-5.1); Protein, Total 7.7 g/dL (6.4-8.2); Sodium Level 140 mmol/L (136-145); Troponin (Emerg Dept Use Only) < 0.02 ng/mL (0.0-0.045)
--- NOTE | 2020-02-29 15:19 | RAD REPORT ---
EXAM DESCRIPTION: RAD - Chest Single View - 02/29/2020 2:49 pm CLINICAL HISTORY: PAIN Chest pain. COMPARISON: Chest Single View dated 06/25/2019; Chest Single View dated 05/23/2018; CHEST PA AND LAT 2 VIEW dated 04/27/2015; CHEST PA AND LAT 2 VIEW dated 05/05/2014 FINDINGS: Portable technique limits examination quality. The lungs are emphysematous but clear. The heart is normal in size. Fracture of the proximal left hum erus is seen with mild impaction.
--- NOTE | 2020-02-29 15:22 | RAD REPORT ---
EXAM DESCRIPTION: RAD - Shoulder Left 2 View - 02/29/2020 2:49 pm CLINICAL HISTORY: PAIN COMPARISON: No comparisons FINDINGS: Mildly impacted fractures seen proximal left humerus. No dislocation is evident.
--- NOTE | 2020-02-29 15:24 | RAD REPORT ---
EXAM DESCRIPTION: RAD - Humerus Left - 02/29/2020 2:49 pm CLINICAL HISTORY: PAIN COMPARISON: No comparisons FINDINGS: Mildly impacted fracture is present proximal left humerus. No dislocation evident.
--- NOTE | 2020-02-29 15:59 | RAD REPORT ---
EXAM DESCRIPTION: CT - Head C Spine Cap Darin Alex - 02/29/2020 3:48 pm CLINICAL HISTORY: Trauma, head and neck injury. Chest, abdomen and pelvis pain. PAIN COMPARISON: No comparisons TECHNIQUE: CT head without contrast. CT cervical spine without contrast with coronal and sagittal reformatted images. CT chest, abdomen and pelvis with IV contrast (approximately 100 mL nonionic IV contrast) with borrego l and sagittal reformatted images of the spine. All CT scans are performed using dose optimization technique as appropriate and may include automated exposure control or mA/KV adjustment according to patient size. FINDINGS: CT HEAD WITHOUT CONTRAST: No intracranial hemorrhage, hydrocephalus or extra-axial fluid collection. Moderate generalized brain atrophy is present with moderate periventricular and deep white matter chronic microvascular ischemi c changes. No areas of brain edema or midline shift. Mild mucosal thickening of the maxillary antra. The paranasal sinuses and mastoids otherwise clear. T he calvarium is intact. CT CERVICAL SPINE WITHOUT CONTRAST: No fracture or subluxation. Mild generalized cervical spondylosis. The prevertebral soft tissues are normal in thickness. CT CHEST, ABDOMEN, PELVIS WITH CONTRAST: Emphysematous changes are seen with a small infiltrate in the right lung base which may be developing pneumonia or aspiration related.Fracture the proximal left humerus is seen with mild impaction. No a dditional fracture evident.No pneumothorax or pericardial/pleural fluid. No evidence of intra-abdominal visceral injury, free fluid or free air. Large hiatal hernia. No pelvic free fluid or hematoma. IMPRESSION: Impacted fracture proximal left humerus is seen. Right lung base opacity is noted suggesting developing pneumonia or aspiration.
--- NOTE | 2020-02-29 16:14 | EDPHYS ---
Physician Documentation [facility] Name: Elisa Buckner Age: 75 yrs Sex: Female : 1945 Arrival Date: 02/29/2020 Time: 13:42 Bed 6 Private MD: ED Physician Armando Canales HPI: 02/28 14:23 This 75 yrs old Female presents to ER via EMS with complaints of Fall Injury. ashu 14:23 Details of fall: The patient fell from an upright position, while walking. Onset: The ashu symptoms/episode began/occurred at an unknown time. Associated injuries: The patient sustained anterior aspect of left shoulder, left bicep, posterior aspect of left shoulder and left tricep. Associated injuries: The patient sustained decreased range of motion, ecchymosis, hematoma, obvious fracture, painful injury, swelling. Severity of symptoms: At their worst the symptoms were moderate, in the emergency department the symptoms are unchanged. It is unknown whether or not the patient has had similar symptoms in the past. Historical: - Allergies: 13:45 Biaxin; sv - PMHx: 13:45 Dementia; Vascular; Depression; Hypertension; Minor Epilepsy; sv - Immunization history:: Adult Immunizations. - Immunization history: Last tetanus immunization: unknown. - Family history:: not pertinent. - Social history:: Smoking status: Patient denies any tobacco usage or history of. ROS: 14:23 Constitutional: Negative for fever, chills, and weight loss, Eyes: Negative for injury, ashu pain, redness, and discharge, ENT: Negative for injury, pain, and discharge, Neck: Negative for injury, pain, and swelling, Cardiovascular: Negative for chest pain, palpitations, and edema, Respiratory: Negative for shortness of breath, cough, wheezing, and pleuritic chest pain, Abdomen/GI: Negative for abdominal pain, nausea, vomiting, diarrhea, and constipation, Back: Negative for injury and pain, : Negative for injury, bleeding, discharge, and swelling, Skin: Negative for injury, rash, and discoloration, Psych: Negative for depression, anxiety, suicide ideation, homicidal ideation, and hallucinations, Allergy/Immunology: Negative for hives, rash, and allergies, Endocrine: Negative for neck swelling, polydipsia, polyuria, polyphagia, and marked weight changes, Hematologic/Lymphatic: Negative for swollen nodes, abnormal bleeding, and unusual bruising. 14:23 MS/extremity: Positive for injury or acute deformity, decreased range of motion, pain, swelling, tenderness, of the anterior aspect of left shoulder, left bicep, posterior aspect of left shoulder and left tricep. Exam: 14:23 Constitutional: This is a well developed, well nourished patient who is awake, alert, ashu and in no acute distress. Head/Face: Normocephalic, atraumatic. Eyes: Pupils equal round and reactive to light, extra-ocular motions intact. Lids and lashes normal. Conjunctiva and sclera are non-icteric and not injected. Cornea within normal limits. Periorbital areas with no swelling, redness, or edema. ENT: Nares patent. No nasal discharge, no septal abnormalities noted. Tympanic membranes are normal and external auditory canals are clear. Oropharynx with no redness, swelling, or masses, exudates, or evidence of obstruction, uvula midline. Mucous membranes moist. Neck: Trachea midline, no thyromegaly or masses palpated, and no cervical lymphadenopathy. Supple, full range of motion without nuchal rigidity, or vertebral point tenderness. No Meningismus. Chest/axilla: Normal chest wall appearance and motion. Nontender with no deformity. No lesions are appreciated. Cardiovascular: Regular rate and rhythm with a normal S1 and S2. No gallops, murmurs, or rubs. Normal PMI, no JVD. No pulse deficits. Respiratory: Lungs have equal breath sounds bilaterally, clear to auscultation and percussion. No rales, rhonchi or wheezes noted. No increased work of breathing, no retractions or nasal flaring. Abdomen/GI: Soft, non-tender, with normal bowel sounds. No distension or tympany. No guarding or rebound. No evidence of tenderness throughout. Back: No spinal tenderness. No costovertebral tenderness. Full range of motion. Female : Normal external genitalia. Skin: Warm, dry with normal turgor. Normal color with no rashes, no lesions, and no evidence of cellulitis. Neuro: Awake and alert, GCS 15, oriented to person, place, time, and situation. Cranial nerves II-XII grossly intact. Motor strength 5/5 in all extremities. Sensory grossly intact. Cerebellar exam normal. Normal gait. Psych: Awake, alert, with orientation to person, place and time. Behavior, mood, and affect are within normal limits. 14:23 Musculoskeletal/extremity: Extremities: decreased ROM, pain, swelling, tenderness, ROM: limited active range of motion due to pain, limited passive range of motion due to pain, Circulation is intact in all extremities. Sensation intact. Compartment Syndrome exam of affected extremity: is normal. DVT Exam: no pain, no swelling, no tenderness, negative Homans' sign noted on exam, no appreciated bluish discoloration, no erythema, no increased warmth. 14:23 Neuro: Orientation: to person, Not oriented to place, time, situation, Mentation: confused, Cranial nerves: is grossly normal based on the patient's age, no acute changes, CN I not tested, CN II- XII are normal as tested, extraocular movements are intact, Facial palsy and sensory deficits are absent. Vital Signs: 13:53 BP 157 / 80; Pulse 84; Resp 17; Temp 97.6; Pulse Ox 97% on R/A; sv 14:30 BP 153 / 84; Pulse 84; Resp 22; Temp 97.9; Pulse Ox 97% ; sv 15:20 BP 162 / 78; Pulse 89; Resp 15; Pulse Ox 100% ; sv 16:00 BP 163 / 76; Pulse 92; Resp 19; Temp 98; Pulse Ox 100% ; sv [place] Coma Score: 13:53 Eye Response: spontaneous(4). Verbal Response: confused(4). Motor Response: obeys sv commands(6). Total: 14. Trauma Score (Adult): 13:53 Eye Response: spontaneous(1); Verbal Response: confused(1); Motor Response: obeys sv commands(2); Systolic BP: > 89 mm Hg(4); Respiratory Rate: 10 to 29 per min(4); Terese Score: 14; Trauma Score: 12 14:30 Eye Response: spontaneous(1); Verbal Response: confused(1); Motor Response: obeys sv commands(2); Systolic BP: > 89 mm Hg(4); Respiratory Rate: 10 to 29 per min(4); Terese Score: 14; Trauma Score: 12 MDM: 14:03 Patient medically screened. [facility] 14:26 Data reviewed: vital signs, nurses notes, lab test result(s), EKG, radiologic studies, [facility] CT scan, plain films. 16:06 Differential diagnosis: abrasion, closed head injury, contusion, fracture, sprain, ashu strain. Data interpreted: drop wire stringer: rate is 84 beats/min, rhythm is regular, Pulse oximetry: on room air is 97 %. Test interpretation: by ED physician or midlevel provider: ECG, plain radiologic studies. Counseling: I had a detailed discussion with the patient and/or guardian regarding: the historical points, exam findings, and any diagnostic results supporting the discharge/admit diagnosis, lab results, radiology results, the need for outpatient follow up, for definitive care, a orthopedic surgeon. ED course: pt stable, left shoulder fracture, early right lung base pneumonia, non toxic, lives [facility]. will cover with an incentive spirometer, abx and ortho follow up for fx shoulder. 02/28 14:21 Order name: Basic Metabolic Panel [facility] 02/28 14:21 Order name: CBC with Diff [facility] 02/28 14:21 Order name: LFT's; Complete Time: 16:03 [facility] 02/28 14:21 Order name: Magnesium; Complete Time: 16:03 [facility] 02/28 14:21 Order name: NT PRO-BNP; Complete Time: 16:03 [facility] 02/28 14:21 Order name: PT-INR; Complete Time: 16:03 [facility] 02/28 14:21 Order name: Troponin (emerg Dept Use Only); Complete Time: 16:03 [facility] 02/28 14:21 Order name: CK; Complete Time: 16:03 [facility] 02/28 14:21 Order name: Ckmb; Complete Time: 16:03 [facility] 02/28 14:21 Order name: Urine Culture [facility] 02/28 14:21 Order name: Basic Metabolic Panel; Complete Time: 16:03 [facility] 02/28 14:21 Order name: CBC with Automated Diff; Complete Time: 16:03 [facility] 02/28 15:20 Order name: Urine Dipstick--Ancillary (enter results) [place] 02/28 16:05 Order name: Blood Culture Adult (2) [facility] 02/28 13:53 Order name: Shoulder Left (2 View) XRAY; Complete Time: 16:03 sv 02/28 13:53 Order name: Humerus Left XRAY; Complete Time: 16:03 02/28 14:21 Order name: XRAY Chest (1 view); Complete Time: 16:03 [facility] 02/28 14:21 Order name: EKG; Complete Time: 14:22 [facility] 02/28 14:21 Order name: Cardiac monitoring; Complete Time: 14:43 [facility] 02/28 14:21 Order name: EKG - Nurse/Tech; Complete Time: 14:43 [facility] 02/28 14:21 Order name: IV Saline Lock; Complete Time: 15:17 [facility] 02/28 14:21 Order name: Labs collected and sent; Complete Time: 15:17 [facility] 02/28 14:21 Order name: O2 Per Protocol; Complete Time: 14:43 [facility] 02/28 14:21 Order name: O2 Sat Monitoring; Complete Time: 14:43 [facility] 02/28 14:21 Order name: CT Traumagram (Head C Spine CAP W Con); Complete Time: 16:03 [facility] 02/28 16:11 Order name: INCENTIVE SPIROMETRY 02/28 14:21 Order name: Urine Dipstick-Ancillary (obtain specimen); Complete Time: 15:17 [facility] 02/28 14:53 Order name: Shoulder Immobilizer; Complete Time: 15:55 [facility] 02/28 14:53 Order name: Ice pack; Complete Time: 15:55 [facility] Administered Medications: 15:00 Drug: NS 0.9% 500 ml Route: IV; Rate: bolus; Site: right antecubital; sv 15:30 Follow up: Response: No adverse reaction; IV Status: Completed infusion; IV Intake: sv 500ml 15:00 Drug: NS 0.9% 1000 ml Route: IV; Rate: 125 ml/hr; Site: right antecubital; sv 17:30 Follow up: Response: No adverse reaction; IV Status: Order to discontinue infusion sv 16:44 Drug: Rocephin 1 grams Route: IV; Rate: per protocol; Site: right antecubital; sv 16:46 Follow up: Response: No adverse reaction; IV Status: Completed infusion; IV Intake: 10mlsv 16:44 Not Given (Patient Refused; tried multiple times to get pt to take and tried to get sv Olesya RN to help as well): Augmentin 875 mg PO once Disposition: 02/29/20 16:14 Discharged to Home. Impression: 2-part fracture of surgical neck of humerus, Dementia in other diseases classified elsewhere, Pneumonia due to other specified bacteria - right base , early, Fall due to bumping against object. - Condition is Stable. - Discharge Instructions: Dementia, Fall Prevention in the Home, Humerus Fracture Treated With Immobilization, Community-Acquired Pneumonia, Adult, Humerus Fracture Treated With Immobilization, [id number], Incentive Spirometer, Community-Acquired Pneumonia, Adult, [id number], Fall Prevention in the Home, [id number], Dementia, [id number]. - Prescriptions for Tylenol- Codeine #3 300-30 mg Oral Tablet - take 1 tablet by ORAL route every 6 hours As needed; 20 tablet. Albuterol Sulfate 90 mcg/actuation - inhale 1-2 puff by INHALATION route every 4-6 hours; 1 Inhaler. Augmentin 875- 125 mg Oral Tablet - take 1 tablet by ORAL route every 12 hours for 10 days; 20 tablet. - Medication Reconciliation Form, Thank You Letter, Antibiotic Education, Prescription Opioid Use form. - Follow up: Private Physician; When: 2 - 3 days; Reason: Recheck today's complaints, Continuance of care, Re-evaluation by your physician. Follow up: Ed Vega MD; When: 2 - 3 days; Reason: Recheck today's complaints, Re-evaluation by your physician. Follow up: Cassius Carranza MD; When: 2 - 3 days; Reason: Recheck today's complaints, Re-evaluation by your physician. Follow up: Santi Yu MD; When: 2 - 3 days; Reason: Recheck today's complaints, Re-evaluation by your physician. - Problem is new. - Symptoms have improved. Signatures: Dispatcher [employer] Camille Mclaughlin RN RN sv Anderson, Corey, MD MD cha Corrections: (The following items were deleted from the chart) 17:35 16:14 02/29/2020 16:14 Discharged to Home. Impression: 2-part fracture of surgical neck sv of humerus; Dementia in other diseases classified elsewhere; Pneumonia due to other specified bacteria - right base , early; Fall due to bumping against object. Condition is Stable. Forms are Medication Reconciliation Form, Thank You Letter, Antibiotic Education, Prescription Opioid Use. Follow up: Private Physician; When: 2 - 3 days; Reason: Recheck today's complaints, Continuance of care, Re-evaluation by your physician. Follow up: Ed Vega; When: 2 - 3 days; Reason: Recheck today's complaints, Re-evaluation by your physician. Follow up: Cassius Carranza; When: 2 - 3 days; Reason: Recheck today's complaints, Re-evaluation by your physician. Follow up: Santi Yu; When: 2 - 3 days; Reason: Recheck today's complaints, Re-evaluation by your physician. Problem is new. Symptoms have improved. ashu
--- NOTE | 2020-02-29 16:14 | ER ---
Nurse's Notes [facility] Name: Elisa Buckner Age: 75 yrs Sex: Female : 1945 Arrival Date: 02/29/2020 Time: 13:42 Bed 6 Private MD: Diagnosis: 2-part fracture of surgical neck of humerus;Dementia in other diseases classified elsewhere;Pneumonia due to other specified bacteria-right base , early;Fall due to bumping against object Presentation: 02/28 13:43 Chief complaint: EMS states: found on the ground by [facility] staff this morning sv around 0700. c/o left shoulder pain. Pt is on Hospice and hospice nurse gave her Tylenol 1gm PO. Vitals WNL for EMS. Care prior to arrival: None. Mechanism of Injury: Fall unknown how pt fell. Trauma event details: Injury occurred in the [facility], Injury occurred: at home. Injury occurred: February 29, 2020. 13:43 Method Of Arrival: EMS: [facility] sv 13:43 Acuity: DAMI 3 sv 13:43 Coronavirus screen: Patient denies a cough. Patient denies shortness of breath or sv difficulty breathing. Patient denies measured and/or subjective temperature greater than 100.4F prior to today's visit. Patient denies travel on a cruise ship or to a country the [facility] currently lists as an affected area. Patient denies contact with known and/or suspected case of COVID-19. Proceed with normal triage. Patient instructed to continue to wear a mask when interacting with others. Patient moved to private room, placed in contact and droplet isolation with eye protection until further assessment. Ebola Screen: No symptoms or risks identified at this time. Initial Sepsis Screen: Does the patient meet any 2 criteria? No. Patient's initial sepsis screen is negative. Does the patient have a suspected source of infection? No. Patient's initial sepsis screen is negative. Risk Assessment: Do you want to hurt yourself or someone else? Patient reports no desire to harm self or others. Onset of symptoms was February 29, 2020. Trauma Activation: Not Applicable Physician: ED Physician; Name: ; Notified At: ; Arrived At: Physician: General Surgeon; Name: ; Notified At: ; Arrived At: Physician: Radiology; Name: ; Notified At: ; Arrived At: Physician: Respiratory; Name: ; Notified At: ; Arrived At: Physician: Lab; Name: ; Notified At: ; Arrived At: Historical: - Allergies: 13:45 Biaxin; sv - PMHx: 13:45 Dementia; Vascular; Depression; Hypertension; Minor Epilepsy; sv - Immunization history:: Adult Immunizations. - Immunization history: Last tetanus immunization: unknown. - Family history:: not pertinent. - Social history:: Smoking status: Patient denies any tobacco usage or history of. Screenin:00 Nutritional screening: No deficits noted. Fall Risk No fall in past 12 months (0 pts). sv Secondary diagnosis (15 points) dementia, No IV (0 pts). Ambulatory Aid- None/Bed Rest/Nurse Assist (0 pts). Gait- Normal/Bed Rest/Wheelchair (0 pts) Mental Status- Overestimates/Forgets Limitations (15 pts.). Total Chun Fall Scale indicates Low Risk Score (25-44 pts). Fall prevention measures have been instituted. Side Rails Up X 2 Placed close to Nursing Station Frequent Obs/Assesments occuring As available Patient and Family Educated on Fall Prevention Program and strategies. 16:54 Abuse screen: Denies threats or abuse. Denies injuries from another. Tuberculosis sv screening: No symptoms or risk factors identified. Primary Survey: 13:43 NO uncontrolled hemorrhage observed. A: The patient is alert. Airway: patent, No sv supplemental oxygen in use on arrival. Oral cavity: clear, Trachea midline. Breathing/Chest: Respiratory pattern: regular, Respiratory effort: spontaneous, unlabored, Chest inspection: symmetrical rise and fall of the chest. Circulation: Heart tones present. Pulses: palpable right radial artery, right dorsalis pedis artery, left radial artery and left dorsalis pedis artery. Skin color: pink, Skin temperature: warm, dry. Disability Alert. Exposure/Environment: All clothing and personal items were removed. Forensic evidence collection is not deemed to be indicated at this time. Items placed in patient belonging bag. There is no evidence of uncontrolled external bleeding. Obvious injury(ies) are noted at this time: bruising to the left shoulder A warming method has been applied: A warm blanket has been provided to the patient. 14:20 Reassessment Airway Airway Patent Oxygen No O2 Oral cavity Clear Trachea Midline sv Breathing/Chest Respiratory pattern Regular Respiratory effort Spontaneous Unlabored Chest inspection Symmetrical Circulation Heart rhythm Sinus rhythm Heart tones Present Pulses Palpable Color [place] Temperature Warm Dry Disability Alert. Secondary Survey: 13:43 HEENT: No deficits noted. Gastrointestinal: No deficits noted. : No signs and/or sv symptoms were reported regarding the genitourinary system. Musculoskeletal: Range of motion: limited in left shoulder Swelling present in anterior aspect of left shoulder. Injury Description: Bruise sustained to anterior aspect of left shoulder is purple, was sustained 6-12 hours ago. Assessment: 13:43 General: Appears in no apparent distress. uncomfortable, slender, Behavior is calm, sv cooperative. Pain: Complains of pain in anterior aspect of left shoulder Pain began this morning around 0700 Is intermittent, episodic, Aggravated by increased activity, touch. Neuro: Level of Consciousness is awake, alert, obeys commands, confused, Oriented to none. Respiratory: Respiratory effort is even, unlabored, Respiratory pattern is regular, symmetrical. 15:00 Reassessment: Patient appears in no apparent distress at this time. No changes from previously documented assessment. 16:50 Reassessment: Called and spoke with Lesley at [facility], she stated that she would sv call the spouse to see about transportation. 17:25 Reassessment: Patient appears in no apparent distress at this time. No changes from previously documented assessment. 17:30 Reassessment: EMS wheelchair van here to take pt. Pt able to stand with standby sv assist and sit in the wheelchair with no difficulty. Vital Signs: 13:53 BP 157 / 80; Pulse 84; Resp 17; Temp 97.6; Pulse Ox 97% on R/A; sv 14:30 BP 153 / 84; Pulse 84; Resp 22; Temp 97.9; Pulse Ox 97% ; sv 15:20 BP 162 / 78; Pulse 89; Resp 15; Pulse Ox 100% ; sv 16:00 BP 163 / 76; Pulse 92; Resp 19; Temp 98; Pulse Ox 100% ; sv Terese Coma Score: 13:53 Eye Response: spontaneous(4). Verbal Response: confused(4). Motor Response: obeys sv commands(6). Total: 14. Trauma Score (Adult): 13:53 Eye Response: spontaneous(1); Verbal Response: confused(1); Motor Response: obeys sv commands(2); Systolic BP: > 89 mm Hg(4); Respiratory Rate: 10 to 29 per min(4); Watson Score: 14; Trauma Score: 12 14:30 Eye Response: spontaneous(1); Verbal Response: confused(1); Motor Response: obeys sv commands(2); Systolic BP: > 89 mm Hg(4); Respiratory Rate: 10 to 29 per min(4); Watson Score: 14; Trauma Score: 12 ED Course: 13:42 Patient arrived in ED. sv 13:44 Triage completed. sv 13:45 Arm band placed on. sv 13:47 Camille Vaca, DUNCAN is Primary Nurse. sv 13:50 Patient has correct armband on for positive identification. Bed in low position. Call sv light in reach. Side rails up X2. alarm security or surveillance monitor on. Pulse ox on. NIBP on. 13:50 Patient maintains SpO2 saturation greater than 95% on room air. sv 13:50 Thermoregulation: warm blanket given to patient. sv 14:03 Armando Canales MD is Attending Physician. ashu 14:35 Inserted saline lock: 20 gauge in right antecubital area, using aseptic technique. sv ,using aseptic technique. done by Miranda SONG Blood collected. 14:49 Shoulder Left (2 View) XRAY In Process Unspecified. EDMS 14:49 Humerus Left XRAY In Process Unspecified. EDMS 14:49 XRAY Chest (1 view) In Process Unspecified. EDMS 15:00 Zelaya cath inserted, using sterile technique, 16 Fr., by sales correspondence clerk, balloon inflated, to sv gravity drainage, urine specimen collected. returned clear yellow urine. 15:17 Basic Metabolic Panel Sent. sv 15:17 CBC with Diff Sent. sv 15:48 CT Traumagram (Head C Spine CAP W Con) In Process Unspecified. EDMS 15:55 Shoulder immobilizer applied on left shoulder. ca1 16:12 Ed Vega MD is Referral Physician. ashu 16:12 Cassius Carranza MD is Referral Physician. ashu 16:12 Santi Yu MD is Referral Physician. ashu 16:32 First set of blood cultures drawn by me. ca1 16:47 Second set of blood cultures drawn by me. ca1 17:35 No provider procedures requiring assistance completed. IV discontinued, intact, sv bleeding controlled, No redness/swelling at site. Pressure dressing applied. 17:35 Zelaya cath removed intact, balloon deflated. sv Administered Medications: 15:00 Drug: NS 0.9% 500 ml Route: IV; Rate: bolus; Site: right antecubital; sv 15:30 Follow up: Response: No adverse reaction; IV Status: Completed infusion; IV Intake: sv 500ml 15:00 Drug: NS 0.9% 1000 ml Route: IV; Rate: 125 ml/hr; Site: right antecubital; sv 17:30 Follow up: Response: No adverse reaction; IV Status: Order to discontinue infusion sv 16:44 Drug: Rocephin 1 grams Route: IV; Rate: per protocol; Site: right antecubital; sv 16:46 Follow up: Response: No adverse reaction; IV Status: Completed infusion; IV Intake: 10mlsv 16:44 Not Given (Patient Refused; tried multiple times to get pt to take and tried to get sv Olesya SONG to help as well): Augmentin 875 mg PO once Intake: 13:53 PO: 0ml; Total: 0ml. sv 14:30 PO: 0ml; Total: 0ml. sv 15:30 IV: 500ml; Total: 500ml. sv 16:46 IV: 10ml; Total: 510ml. sv Output: 13:53 Urine: 0ml; Total: 0ml. sv 14:30 Urine: 0ml; Total: 0ml. sv 17:35 Urine: 700ml (Zelaya); Total: 700ml. sv Outcome: 16:14 Discharge ordered by . ashu 17:34 Discharged to home via wheelchair, Dr Canales spoke with pt's spouse and discussed the sv discharge. 17:34 Condition: stable 17:34 Discharge instructions given to family, Instructed on discharge instructions, follow up and referral plans. medication usage, Demonstrated understanding of instructions, follow-up care, medications, Prescriptions given X 3. 17:35 Patient's length of stay in the Emergency Department was greater than 2 hours. sv 17:35 Patient left the ED. sv Signatures: Dispatcher [employer] EDMS Camille Vaca RN RN sv Anderson, Corey, MD MD cha Acob, Cheryl, RN RN ca1 Corrections: (The following items were deleted from the chart) 13:45 13:43 Acuity: DAMI 4 sv sv 13:54 13:53 Pulse 84bpm; Resp 17bpm; Pulse Ox 97% RA; Temp 97.6F; sv sv 14:46 13:53 Terese Score=15, Trauma Score=12, sv sv 14:46 13:53 GCS: 15, sv sv
[2020-02-29] MEDS ORDERED: AMOX/K CLAV 875 MG TAB ONE (16:36)
[2020-02-29] MEDS ORDERED: CEFTRIAXONE/SWI 1gm 1 GM/10 ML SYR ONE (16:36)
[2020-02-29 17:05] LABS: Urine Blood NEGATIVE (NEG); Urine Glucose NEGATIVE (NEG); Urine Protein NEGATIVE (NEG)
[2020-02-29 17:59] VITALS: O2SAT 100
[2020-02-29 18:00] VITALS: BP 163/76; TEMP 98
== END 2020-02-29 17:35 | disposition home or self-care (01) ==
LOC: ER 13:40
DX: S42.222A 2-part displaced fracture of surgical neck of left humerus, initial encounter for closed fracture (principal); J15.8 Pneumonia due to other specified bacteria; F03.90 Unspecified dementia, unspecified severity, without behavioral disturbance, psychotic disturbance, mood disturbance, and anxiety; I10 Essential (primary) hypertension; Z88.6 Allergy status to analgesic agent; W18.00XA Striking against unspecified object with subsequent fall, initial encounter; Y93.01 Activity, walking, marching and hiking; Y92.9 Unspecified place or not applicable
CPT/HCPCS: 96361; 93005; 87040 ×2; 87088; 85025; 80048; 36415; 83735; 82550; 85610; 80076; 81003; 84484; 82553; 83880; 70450; 72125; 71260; 74177; 71045; 73060; 73030; 51702; 96374; 99285; Q9967; J0696; J7030; 87086